=== PATIENT | female | born 1975 | race Caucasian/White ===

== ENCOUNTER 2022-06-20 05:14 | Emergency (ER) | payer MEDICAID, SELFPAY ==
--- NOTE | 2022-06-20 05:37 | ED_ITS ---
Documented by User: Khoa Brady DO 06/20/22 05:58 HPI - Dizziness General: Chief Complaint: Abdominal Pain Stated Complaint: right ear pain, abd pain, N/V/D Time Seen by Provider: 06/20/22 05:26 History of Present Illness: HPI Narrative: 47-year-old female with a history of ear infections and vertigo she says. She presents on awakening around an hour prior to arrival with significant vertiginous symptoms, and right ear pain. Her vertigo is bad enough, that she has thrown up 3 times. She has had an episode of diarrhea as well. No blood in the stool. No significant abdominal pain prior to the throwing up. MD elicited complaint: dizziness Pertinent past history: inner ear problems Onset (ago): minute(s) Timing: sudden onset Severity: severe Description: sense of movement and room spinning History of similar symptoms: Yes Exacerbating factors: movement/ambulation Associated symptoms: Reports diaphoresis, nausea and vomiting; Denies chest pain, chills, ear discharge or headache(s) Associated neuro symptoms: Deny confusion, difficulty speaking, dysphagia, diplopia or extremity weakness Review of Systems Const: Reports: diaphoresis; Denies: chills Eyes: Denies: change in vision ENMT: Reports: ear or mastoid pain; Denies: throat pain or ear discharge Card: Denies: chest pain or irregular heart rhythm GI: Reports: nausea, vomiting and diarrhea; Denies: abdominal pain or dysphagia : Denies: flank pain Musc: Denies: neck pain Skin/Breast: Denies: rash Neuro: Denies: headache(s) or confusion PFS ED PFSH: Social History Smoking and tobacco status: never smoked Second hand smoke exposure: No Alcohol intake: never Physical Exam Const: ORIENTATION/CONSCIOUSNESS: Yes awake, Yes oriented to person, Yes oriented to place and Yes oriented to time HENMT: COMMON NORMALS: normocephalic, atraumatic and Normal external nose present HEAD & SCALP: normocephalic and atraumatic FACE & SINUS: normal facial exam and face symmetric NOSE: Normal external nose present TYMPANIC MEMBRANE: TM abnormal TM laterality: right Details: effusion and erythematous Eye: COMMON NORMALS: Equal, round and reactive pupils present and EOMs intact bilaterally PUPIL: Yes Equal, round and reactive pupils present and Yes Pupil accommodation reflex normal Chest: CHEST: Yes Symmetrical chest wall rise Resp: COMMON NORMALS: normal respiratory effort, No use of accessory muscles and clear to auscultation bilaterally AUSCULTATION: clear to auscultation bilaterally Cardio: COMMON NORMALS: regular rate and regular rhythm RATE: regular rate RHYTHM: regular rhythm GI: COMMON NORMALS: Normal to inspection, nondistended, normoactive bowel sounds present, Soft to palpation and non-tender PALPATION: Yes Soft to palpation Extremity: COMMON NORMALS: no pedal edema Neuro: ROSALINA COMA SCALE: document GCS findings [place] coma scale eye opening: Spontaneous [place] coma scale verbal response: Orientated [place] coma scale motor response: Obey commands [place] coma scale total score: 15 SENSORIUM/ORIENTATION: Yes oriented to person, Yes oriented to place and Yes or iented to time COORDINATION/BALANCE: [id number] test normal SPEECH: speech normal SENSORY EXAM: Yes extremities (intact) MOTOR EXAM: Normal motor muscle tone present throughout COORDINATION: [id number]-jp-vpyj test normal Psych: COMMON NORMALS: mental status grossly normal and cooperative Course Vital Signs: Vital signs: Vital Signs Temperature 97.1 F L 06/20/22 05:50 Pulse Rate 80 06/20/22 05:50 Respiratory Rate 20 H 06/20/22 05:50 Blood Pressure 139/97 06/20/22 05:50 Pulse Oximetry 97 06/20/22 05:50 [facility] - Dizziness Medical Decision Making 47-year-old female with vertigo, vomiting, and one episode of diarrhea. Her belly is not tender. Vitals are good. Labs are pending. She will be checked out to the oncoming physician at shift change. Lab Data : 06/20/22 05:45 06/20/22 05:45 Laboratory Results WBC 5.2 10^3/uL (4.0-10.0) 06/20/22 05:45 RBC 4.45 10^6/uL (4.1-5.3) 06/20/22 05:45 Hgb 14.3 g/dL (11.5-15.3) 06/20/22 05:45 Hct 41.6 % (37.0-47.0) 06/20/22 05:45 MCV 93.5 fl (81-99) 06/20/22 05:45 MCH 32.1 pg (28.0-34.0) 06/20/22 05:45 MCHC 34.4 g/dL (30.0-36.0) 06/20/22 05:45 RDW 13.2 % (12.1-15.1) 06/20/22 05:45 Plt Count 135 10^3/cmm (130-400) 06/20/22 05:45 MPV 9.1 fL (7.4-10.4) 06/20/22 05:45 Neut % (Auto) 65.7 % 06/20/22 05:45 Lymph % (Auto) 27.0 % 06/20/22 05:45 [place] % (Auto) 5.9 % 06/20/22 05:45 Eos % (Auto) 0.8 % 06/20/22 05:45 Baso % (Auto) 0.4 % 06/20/22 05:45 Neut # (Auto) 3.43 10^3/uL (1.8-7.7) 06/20/22 05:45 Lymph # (Auto) 1.4 10^3/uL (0.8-4.8) 06/20/22 05:45 [place] # (Auto) 0.3 10^3/uL (0.2-0.9) 06/20/22 05:45 Eos # (Auto) 0.0 10^3/uL (0.0-0.8) 06/20/22 05:45 Baso # (Auto) 0.0 10^3/uL (0.0-0.1) 06/20/22 05:45 Nucleated RBC % (auto) 0 % 06/20/22 05:45 Nucleated RBCs # 0.0 /100WBC 06/20/22 05:45 Sodium 140 mmol/L (136-145) 06/20/22 05:45 Potassium 4.1 mmol/L (3.5-5.1) 06/20/22 05:45 Chloride 104 mmol/L (98-107) 06/20/22 05:45 Carbon Dioxide 26 mmol/L (22-29) 06/20/22 05:45 Anion Gap 14.1 (5-19) 06/20/22 05:45 BUN 13 mg/dL (6-20) 06/20/22 05:45 Creatinine 0.6 mg/dL (0.5-0.9) 06/20/22 05:45 GFR Calculation 106.7 mL/min (90-130) 06/20/22 05:45 Glucose 164 mg/dL (65-115) H 06/20/22 05:45 Calculated Osmolality 294 mOsm/kg (285-295) 06/20/22 05:45 Calcium 9.3 mg/dL (8.5-10.5) 06/20/22 05:45 Total Bilirubin 1.3 mg/dL (0.15-1.2) H 06/20/22 05:45 AST 7 U/L (0-32) 06/20/22 05:45 ALT 20 U/L (0-33) 06/20/22 05:45 Alkaline Phosphatase 101 U/L (35-105) 06/20/22 05:45 C-Reactive Protein 3.0 mg/L (0.0-4.9) 06/20/22 05:45 Total Protein 6.8 g/dL (6.6-8.7) 06/20/22 05:45 Albumin 4.0 g/dL (3.5-5.2) 06/20/22 05:45 Globulin 2.8 g/dL (1.3-4.6) 06/20/22 05:45 Lipase 30 U/L (13-60) 06/20/22 05:45 Urine Color Yellow (Yellow) 06/20/22 07:18 Urine Appearance Clear (CLEAR) 06/20/22 07:18 Urine pH 6 (5-7) 06/20/22 07:18 Ur Specific [place] 1.020 (1.005-1.030) 06/20/22 07:18 Urine Protein Neg (Negative) 06/20/22 07:18 Urine Glucose (UA) Norm (Normal) 06/20/22 07:18 Urine Ketones Negative (Negative) 06/20/22 07:18 Urine Blood Neg (Negative) 06/20/22 07:18 Urine Nitrate Negative (Negative) 06/20/22 07:18 Urine Bilirubin Neg (Negative) 06/20/22 07:18 Urine Urobilinogen Norm mg/dL (Negative) 06/20/22 07:18 Ur Leukocyte Esterase Negative (Negative) 06/20/22 07:18 Discharge Plan Discharge Patient Disposition: Home Clinical Impression: Acute labyrinthitis, Right ear pain, Recurrent acute otitis media Condition: Stable Prescriptions: New Medrol (Thony) 4 mg tablets,dose pack See Rx Instructions .ROUTE .COMPLEX Qty: 21 0RF Rx Instructions: orally per package directions meclizine 25 mg tablet 25 mg PO QID PRN (Reason: dizziness) Qty: 20 0RF No Action levothyroxine 50 mcg tablet 50 mcg PO DAILY amoxicillin-pot clavulanate 875-125 mg tablet 1 tab PO Q12H Qty: 14 0RF uoihcxzq-bvhtfgvhy-GT 3.5-10,000-1 mg/mL-unit/mL-% drops,suspension 4 drp otic (ear) Q8H 10 Days Qty: 10 0RF Discharge Orders: Discharge ED (Routine); Ordered 06/20/22 Ordered By: Javed Howard Discharge Diet: Usual diet Discharge Activity: Increase activity as tolerated Activity Restrictions/Additional Instructions: Start prednisone taper today. Use meclizine as needed for relief of dizziness symptoms. If symptoms persist follow-up with your primary care doctor for evaluation for referral to ENT. Sign Out Sign Out Data: Patient Sign Out occurred on 06/20/22 at 06:38. Patient's care was discussed, and care was transferred from to Javed Howard DO. Coding Level of Care Code ED Millinery Designer for Chg Fwd Exam Comprehensive Documented by User: Javed Howard DO 06/20/22 07:46 HPI - Dizziness General: Chief Complaint: Abdominal Pain Stated Complaint: right ear pain, abd pain, N/V/D Time Seen by Provider: 06/20/22 05:26 PFSH ED PFSH: Social History Smoking and tobacco status: never smoked Second hand smoke exposure: No Alcohol intake: never Physical Exam Neuro: ROSALINA COMA SCALE: document GCS findings [place] coma scale total score: 15 Course Vital Signs: Vital signs: Vital Signs Temperature 97.1 F L 06/20/22 05:50 Pulse Rate 80 06/20/22 05:50 Respiratory Rate 20 H 06/20/22 05:50 Blood Pressure 139/97 06/20/22 05:50 Pulse Oximetry 97 06/20/22 05:50 MDM - Dizziness Medical Decision Making 47-year-old female with vertigo, vomiting, and one episode of diarrhea. Her belly is not tender. Vitals are good. Labs are pending. She will be checked out to the oncoming physician at shift change. Care assumed at change of shift on repeat exam she has some residue from drops in the right ear canal and there is some wax present as well but the eardrum itself does not appear to be acutely inflamed the left TM is clear she has reproducible dizziness with change in body position she is particularly worse if she is moves her head to the right. We will give p.o. Ativan and meclizine now here in the emergency room. Discharge her from the emergency room give her meclizine to use as needed and have her follow-up with ENT while case management make arrangements for referral. Medical Records I reviewed the patient's medical records. Lab Data I reviewed the patient's lab results. : 06/20/22 05:45 06/20/22 05:45 Laboratory Results WBC 5.2 10^3/uL (4.0-10.0) 06/20/22 05:45 RBC 4.45 10^6/uL (4.1-5.3) 06/20/22 05:45 Hgb 14.3 g/dL (11.5-15.3) 06/20/22 05:45 Hct 41.6 % (37.0-47.0) 06/20/22 05:45 MCV 93.5 fl (81-99) 06/20/22 05:45 MCH 32.1 pg (28.0-34.0) 06/20/22 05:45 MCHC 34.4 g/dL (30.0-36.0) 06/20/22 05:45 RDW 13.2 % (12.1-15.1) 06/20/22 05:45 Plt Count 135 10^3/cmm (130-400) 06/20/22 05:45 MPV 9.1 fL (7.4-10.4) 06/20/22 05:45 Neut % (Auto) 65.7 % 06/20/22 05:45 Lymph % (Auto) 27.0 % 06/20/22 05:45 [place] % (Auto) 5.9 % 06/20/22 05:45 Eos % (Auto) 0.8 % 06/20/22 05:45 Baso % (Auto) 0.4 % 06/20/22 05:45 Neut # (Auto) 3.43 10^3/uL (1.8-7.7) 06/20/22 05:45 Lymph # (Auto) 1.4 10^3/uL (0.8-4.8) 06/20/22 05:45 [place] # (Auto) 0.3 10^3/uL (0.2-0.9) 06/20/22 05:45 Eos # (Auto) 0.0 10^3/uL (0.0-0.8) 06/20/22 05:45 Baso # (Auto) 0.0 10^3/uL (0.0-0.1) 06/20/22 05:45 Nucleated RBC % (auto) 0 % 06/20/22 05:45 Nucleated RBCs # 0.0 /100WBC 06/20/22 05:45 Sodium 140 mmol/L (136-145) 06/20/22 05:45 Potassium 4.1 mmol/L (3.5-5.1) 06/20/22 05:45 Chloride 104 mmol/L (98-107) 06/20/22 05:45 Carbon Dioxide 26 mmol/L (22-29) 06/20/22 05:45 Anion Gap 14.1 (5-19) 06/20/22 05:45 BUN 13 mg/dL (6-20) 06/20/22 05:45 Creatinine 0.6 mg/dL (0.5-0.9) 06/20/22 05:45 GFR Calculation 106.7 mL/min (90-130) 06/20/22 05:45 Glucose 164 mg/dL (65-115) H 06/20/22 05:45 Calculated Osmolality 294 mOsm/kg (285-295) 06/20/22 05:45 Calcium 9.3 mg/dL (8.5-10.5) 06/20/22 05:45 Total Bilirubin 1.3 mg/dL (0.15-1.2) H 06/20/22 05:45 AST 7 U/L (0-32) 06/20/22 05:45 ALT 20 U/L (0-33) 06/20/22 05:45 Alkaline Phosphatase 101 U/L (35-105) 06/20/22 05:45 C-Reactive Protein 3.0 mg/L (0.0-4.9) 06/20/22 05:45 Total Protein 6.8 g/dL (6.6-8.7) 06/20/22 05:45 Albumin 4.0 g/dL (3.5-5.2) 06/20/22 05:45 Globulin 2.8 g/dL (1.3-4.6) 06/20/22 05:45 Lipase 30 U/L (13-60) 06/20/22 05:45 Urine Color Yellow (Yellow) 06/20/22 07:18 Urine Appearance Clear (CLEAR) 06/20/22 07:18 Urine pH 6 (5-7) 06/20/22 07:18 Ur Specific [place] 1.020 (1.005-1.030) 06/20/22 07:18 Urine Protein Neg (Negative) 06/20/22 07:18 Urine Glucose (UA) Norm (Normal) 06/20/22 07:18 Urine Ketones Negative (Negative) 06/20/22 07:18 Urine Blood Neg (Negative) 06/20/22 07:18 Urine Nitrate Negative (Negative) 06/20/22 07:18 Urine Bilirubin Neg (Negative) 06/20/22 07:18 Urine Urobilinogen Norm mg/dL (Negative) 06/20/22 07:18 Ur Leukocyte Esterase Negative (Negative) 06/20/22 07:18 Discharge Plan Discharge Patient Disposition: Home Clinical Impression: Acute labyrinthitis, Right ear pain, Recurrent acute otitis media Condition: Stable Prescriptions: New Medrol (Thony) 4 mg tablets,dose pack See Rx Instructions .ROUTE .COMPLEX Qty: 21 0RF Rx Instructions: orally per package directions meclizine 25 mg tablet 25 mg PO QID PRN (Reason: dizziness) Qty: 20 0RF No Action levothyroxine 50 mcg tablet 50 mcg PO DAILY amoxicillin-pot clavulanate 875-125 mg tablet 1 tab PO Q12H Qty: 14 0RF [id number]-luaxpivzp-DD 3.5-10,000-1 mg/mL-unit/mL-% drops,suspension 4 drp otic (ear) Q8H 10 Days Qty: 10 0RF Discharge Orders: Discharge ED (Routine); Ordered 06/20/22 Ordered By: Javed Howard Discharge Diet: Usual diet Discharge Activity: Increase activity as tolerated Activity Restrictions/Additional Instructions: Start prednisone taper today. Use meclizine as needed for relief of dizziness symptoms. If symptoms persist follow-up with your primary care doctor for evaluation for referral to ENT. Sign Out Sign Out Data: Patient Sign Out occurred on 06/20/22 at 06:38. Patient's care was discussed, and care was transferred from to Javed Howard DO. Coding Level of Care Code ED Millinery Designer for Alena Fwd Exam Comprehensive
--- NOTE | 2022-06-20 05:43 | ECG_ITS ---
[facility] Test Date: 2022-06-20 Pat Name: Tenisha Mclain Department: Room: Gender: Female Stamping Press Operator: : 1975 Requested By: Khoa Ribeiro Order Number: [id number] Charis MD: Deepa Arias M.D. Measurements Intervals [place] Rate: 61 P: 57 [place]: 170 QRS: -19 QRSD: 119 T: 3 QT: 363 QTc: 367 Interpretive Statements SINUS RHYTHM LOW QRS VOLTAGE IN PRECORDIAL LEADS [QRS DEFLECTION < 1.0 mV IN CHEST LEADS] INCOMPLETE RIGHT BUNDLE BRANCH BLOCK [90+ ms QRS DURATION, TERMINAL R IN V1/V2, 40+ ms S IN I/aVL/V4/V5/V6] NONSPECIFIC T-WAVE ABNORMALITY No previous ECG available for comparison Electronically Signed On 06-20-2022 7:56:33 CDT by Deepa Arias M.D. [id number]
[2022-06-20 05:50] VITALS: BP 139/97; PULSE 80; RESP 20; TEMP 36.2; O2SAT 97; BMI 34.4
[2022-06-20 05:58] LABS: Basophils % 0.4 %; Eosinophils % 0.8 %; Hematocrit 41.6 % (37.0-47.0); Hemoglobin 14.3 g/dL (11.5-15.3); Lymphocytes # 1.4 10^3/uL (0.8-4.8); Mean Corpuscular HGB Conc 34.4 g/dL (30.0-36.0); Mean Corpuscular Hemoglobin 32.1 pg (28.0-34.0); Mean Corpuscular Volume 93.5 fl (81-99); Mean Platelet Volume 9.1 fL (7.4-10.4); Monocytes # 0.3 10^3/uL (0.2-0.9); Monocytes % 5.9 %; Neutrophils # 3.43 10^3/uL (1.8-7.7); Neutrophils % 65.7 %; Nucleated Red Blood Cells % 0 %; Platelet Count 135 10^3/cmm (130-400); Red Blood Count 4.45 10^6/uL (4.1-5.3); Red Cell Distribution Width 13.2 % (12.1-15.1); White Blood Count 5.2 10^3/uL (4.0-10.0)
[2022-06-20] MEDS: midazolam 1 mg/mL INJ 2 mL IVP (05:58)
[2022-06-20] MEDS: ondansetron 2 mg/ML SDV 2 mL 4 MG IVP (05:58)
[2022-06-20] MEDS: sodium chloride 0.9% 1,000 ML 999 ML IV (05:58)
[2022-06-20 06:17] LABS: Alanine Aminotransferase 20 U/L (0-33); Alkaline Phosphatase 101 U/L (35-105); Anion Gap 14.1 (5-19); Aspartate Amino Transferase 7 U/L (0-32); Blood Urea Nitrogen 13 mg/dL (6-20); Calcium 9.3 mg/dL (8.5-10.5); Carbon Dioxide 26 mmol/L (22-29); Chloride 104 mmol/L (98-107); Globulin 2.8 g/dL (1.3-4.6); Glomerular Filtration Rate 106.7 mL/min (90-130); Glucose 164 mg/dL (65-115); Lipase 30 U/L (13-60); Osmolality Calculated 294 mOsm/kg (285-295); Potassium 4.1 mmol/L (3.5-5.1); Sodium 140 mmol/L (136-145); Total Bilirubin 1.3 mg/dL (0.15-1.2); Total Protein 6.8 g/dL (6.6-8.7)
[2022-06-20 07:27] LABS: Add Urine Microscopic? NO; Charge for UA Resulting for Rev
[2022-06-20 07:31] LABS: Urine Appearance Clear (CLEAR); Urine Color Yellow (Yellow); pH Urine 6 (5-7)
[2022-06-20 07:32] LABS: Bilirubin Urine Neg (Negative); Blood Urine Neg (Negative); Glucose Urine UA Norm (Normal); Ketones Urine Negative (Negative); Leukocyte Esterase Urine Negative (Negative); Nitrate Urine Negative (Negative); Protein Urine Neg (Negative); Urobilinogen Urine Norm (Negative)
[2022-06-20] MEDS: meclizine 25 mg tablet PO (07:48)
[2022-06-20] MEDS: LORazepam 2 mg Tablet PO (07:48)
--- NOTE | 2022-06-21 10:59 | DCPLANNER ---
Addendum entered by Deloris Estrada 06/29/22 14:58: Patient did attend appointment scheduled for 06.29.22 with ENT. Addendum entered by Deloris Estrada 06/28/22 15:29: Patient has a follow up appointment scheduled for Monday, June 29, 2022 at 11:[address] Orta at ENT. Clinic will call patient with appointment information. Original Note: shop manager had message to schedule a follow up appointment for patient with ENT. shop manager sent patients information to the front office staff at ENT. Patients information will be printed and reviewed. Clinic will call patient with appointment information.
== END 2022-06-20 07:57 | disposition home or self-care (01) ==
PROVIDERS: Emergency Medicine; Emergency Provider Family Medicine
DX: H83.09 Labyrinthitis, unspecified ear (principal); H92.01 Otalgia, right ear; H66.91 Otitis media, unspecified, right ear
CPT/HCPCS: 80053; 81003; 83690; 85025; 86140; 93005; 96361; 96374; 96375; 99284; J2250; J2405; J7030; J8597

== ENCOUNTER → 2022-06-29 10:37 | Outpatient (BNVA) | payer MEDICAID, SELFPAY | PROVIDERS: Visit Provider Otolaryngology | DX: R42 Dizziness and giddiness (principal); M26.621 Arthralgia of right temporomandibular joint; H91.93 Unspecified hearing loss, bilateral; H92.01 Otalgia, right ear; H93.13 Tinnitus, bilateral; Z86.69 Personal history of other diseases of the nervous system and sense organs; E66.01 Morbid (severe) obesity due to excess calories; Z68.43 Body mass index [BMI] 50.0-59.9, adult; K08.9 Disorder of teeth and supporting structures, unspecified; G44.209 Tension-type headache, unspecified, not intractable | CPT/HCPCS: 99204 ==

== ENCOUNTER 2023-01-14 10:10 | Emergency (ER) | payer MEDICAID, SELFPAY ==
--- NOTE | 2023-01-14 10:17 | ED_ITS ---
HPI - Abdominal Pain General: Chief Complaint: Abdominal Pain Stated Complaint: right side abd pain Time Seen by Provider: 01/14/23 10:17 History of Present Illness: Ms. Mclain is a 47-year-old lady with history of chronic right ovary pain presenting to the emergency department for worse pain. She reports being at her baseline health and had a recent trip which involved travel by driving to [place]. She got back yesterday and felt normal her baseline 3 out of 10 pain however this morning without known specific provoking event pain has been moderate to severe in intensity. Denies worsening with any particular activity or associated symptoms. Since worsening pain has been con stant. Otherwise feels similar in location and character to baseline pain. No other specific changes in health, exacerbating, or alleviating factors identified. Pertinent past history: other Onset (ago): hour(s) Pain Consistency: constant Location: RLQ Severity: moderate Quality: aching and sharp Radiation: none Migration to: no migration Exacerbating factors: nothing Relieving factors: nothing Associated Symptoms: Reports no associated symptoms Review of Systems General: Reports: 10 or more systems reviewed and unremarkable except in HPI and below PFSH ED PFSH: Medical History Allergy to alpha-gal Hyperthyroidism Surgical History Hx of section Hx of cholecystectomy Social History Smoking and tobacco status: never smoked Second hand smoke exposure: No Alcohol intake: never Physical Exam Const: COMMON NORMALS: alert GENERAL APPEARANCE: cooperative and well developed HENMT: COMMON NORMALS: normocephalic and atraumatic HEAD & SCALP: normocephalic and atraumatic Eye: COMMON NORMALS: conjunctivae normal CONJUNCTIVA: Yes conjunctivae normal SCLERA: sclerae normal Neck/C-Spine: COMMON NORMALS: supple GENERAL: Yes trachea midline Resp: COMMON NORMALS: normal respiratory effort EFFORT & INSPECTION: Yes able to speak in complete sentences Cardio: COMMON NORMALS: regular rate and regular rhythm RATE: regular rate RHYTHM: regular rhythm GI: COMMON NORMALS: Soft to palpation PALPATION: Yes Soft to palpation, Yes Tenderness to palpation present (GI) Details: RLQ, No Guarding due to palpation present (GI) and No Rigid due to palpation Extremity: GENERAL: Yes normal exam except as noted and No edema Neuro: COMMON NORMALS: moves all extremities SENSORIUM/ORIENTATION: Yes alert and No Orientation impaired Psych: COMMON NORMALS: mental status grossly normal and Normal thought process present THOUGHT PROCESS: Normal thought process present Course Vital Signs: Vital signs: Vital Signs Pulse Rate 67 01/14/23 10:21 Respiratory Rate 18 01/14/23 11:14 Blood Pressure 174/76 01/14/23 11:11 Pulse Oximetry 97 01/14/23 11:11 Oxygen Delivery Me thod 01/14/23 11:11 MDM - Abdominal Pain Medical Decision Making 47-year-old lady presenting with right-sided abdominal pain with a history of chronic pain. Exam as above. Labs with no significant hematologic or metabolic abnormalities. No UTI. hCG negative. Pelvic ultrasound without clear abnormality though right ovary is not optimally visualized and endometrium is mildly thickened. CT demonstrates no specific abnormality, appendix is normal. Given patient description of symptoms and questionable ultrasound results FLIGHT OPERATIONS COORDINATOR service consulted and came to see the patient. Patient satisfactory for outpatient management and I will message case management for FLIGHT OPERATIONS COORDINATOR follow-up. The results of ED evaluation were discussed with the patient including prescriptions and/or symptomatic cares (if applicable) including appropriate and responsible use, followup plan, and return precautions. The patient verbalized understanding and felt safe for discharge. Medical Records I reviewed the patient's medical records. Lab Data I reviewed the patient's lab results. 01/14/23 11:04 01/14/23 11:04 Labs/Radiology: Radiology Impressions Pelvis Ultrasound 01/14/23 10:36 IMPRESSION: Endometrium is mildly thickened measuring 15 mm. Abdomen/Pelvis CT 01/14/23 13:45 IMPRESSION: No acute findings.A normal appendix is identified. Laboratory Results WBC 6.3 10^3/uL (4.0-10.0) 01/14/23 11:04 RBC 4.55 10^6/uL (4.1-5.3) 01/14/23 11:04 Hgb 14.2 g/dL (11.5-15.3) 01/14/23 11:04 Hct 43.8 % (37.0-47.0) 01/14/23 11:04 MCV 96.3 fl (81-99) 01/14/23 11:04 MCH 31.2 pg (28.0-34.0) 01/14/23 11:04 MCHC 32.4 g/dL (30.0-36.0) 01/14/23 11:04 RDW 12.7 % (12.1-15.1) 01/14/23 11:04 Plt Count 161 10^3/cmm (130-400) 01/14/23 11:04 MPV 9.1 fL (7.4-10.4) 01/14/23 11:04 Neut % (Auto) 57.1 % 01/14/23 11:04 Lymph % (Auto) 34.7 % 01/14/23 11:04 [place] % (Auto) 6.7 % 01/14/23 11:04 Eos % (Auto) 0.8 % 01/14/23 11:04 Baso % (Auto) 0.5 % 01/14/23 11:04 Neut # (Auto) 3.60 10^3/uL (1.8-7.7) 01/14/23 11:04 Lymph # (Auto) 2.2 10^3/uL (0.8-4.8) 01/14/23 11:04 [place] # (Auto) 0.4 10^3/uL (0.2-0.9) 01/14/23 11:04 Eos # (Auto) 0.1 10^3/uL (0.0-0.8) 01/14/23 11:04 Baso # (Auto) 0.0 10^3/uL (0.0-0.1) 01/14/23 11:04 Nucleated RBC % (auto) 0 % 01/14/23 11:04 Nucleated RBCs # 0.0 /100WBC 01/14/23 11:04 Sodium 139 mmol/L (136-145) 01/14/23 11:04 Potassium 4.2 mmol/L (3.5-5.1) 01/14/23 11:04 Chloride 104 mmol/L (98-107) 01/14/23 11:04 Carbon Dioxide 22 mmol/L (22-29) 01/14/23 11:04 Anion Gap 17.2 (5-19) 01/14/23 11:04 BUN 7 mg/dL (6-20) 01/14/23 11:04 Creatinine 0.7 mg/dL (0.5-0.9) 01/14/23 11:04 GFR Calculation 89.3 mL/min (90-130) L 01/14/23 11:04 Glucose 130 mg/dL (65-115) H 01/14/23 11:04 Calculated Osmolality 288 mOsm/kg (285-295) 01/14/23 11:04 Calcium 9.3 mg/dL (8.5-10.5) 01/14/23 11:04 Total Bilirubin 1.2 mg/dL (0.15-1.2) 01/14/23 11:04 AST 11 U/L (0-32) 01/14/23 11:04 ALT 22 U/L (0-33) 01/14/23 11:04 Alkaline Phosphatase 102 U/L (35-105) 01/14/23 11:04 Total Protein 6.9 g/dL (6.6-8.7) 01/14/23 11:04 Albumin 3.8 g/dL (3.5-5.2) 01/14/23 11:04 Globulin 3.1 g/dL (1.3-4.6) 01/14/23 11:04 HCG, Qual Negative (Negative) 01/14/23 11:04 Urine Color Yellow (Yellow) 01/14/23 11:27 Urine Appearance Clear (CLEAR) 01/14/23 11:27 Urine pH 6 (5-7) 01/14/23 11:27 Ur Specific [place] 1.010 (1.005-1.030) 01/14/23 11:27 Urine Protein Neg (Negative) 01/14/23 11:27 Urine Glucose (UA) Norm (Normal) 01/14/23 11:27 Urine Ketones Negative (Negative) 01/14/23 11:27 Urine Blood Neg (Negative) 01/14/23 11:27 Urine Nitrate Negative (Negative) 01/14/23 11:27 Urine Bilirubin Neg (Negative) 01/14/23 11:27 Urine Urobilinogen Norm mg/dL (Negative) 01/14/23 11:27 Ur Leukocyte Esterase Negative (Negative) 01/14/23 11:27 Discharge Plan Discharge Patient Disposition: Home Clinical Impression: Abdominal pain Condition: Stable Prescriptions: New oxycodone 5 mg tablet 5 mg PO Q4H PRN (Reason: pain) Qty: 10 0RF No Action levothyroxine 50 mcg tablet 50 mcg PO DAILY amoxicillin-pot clavulanate 875-125 mg tablet 1 tab PO Q12H Qty: 14 0RF vsvmzqcg-wibjjgncm-AK 3.5-10,000-1 mg/mL-unit/mL-% drops,suspension 4 drp otic (ear) Q8H 10 Days Qty: 10 0RF Medrol (Thony) 4 mg tablets,dose pack See Rx Instructions .ROUTE .COMPLEX Qty: 21 0RF Rx Instructions: orally per package directions meclizine 25 mg tablet 25 mg PO QID PRN (Reason: dizziness) Qty: 20 0RF Discharge Orders: Discharge ED (Routine); Ordered 01/14/23 Ordered By: Randy Watts Discharge Diet: Advance as tolerated and Clear Liquid Discharge Activity: Increase activity as tolerated Patient Instructions: Abdominal Pain (ED), Opioid Safety Activity Restrictions/Additional Instructions: Thank you for visiting the emergency department. You were seen and evaluated for abdominal pain. The exact cause of your symptoms is unclear though does not appear to need hospitalization at this time. You may use jikj-xuz-iiekkzt medications such as acetaminophen and ibuprofen for pain however please do not exceed the daily recommended dosage as listed on the packaging and please keep in mind that many namebrand medications contain the same active ingredients. Please avoid these medications if previously instructed to do so by another physician due to other underlying medical condition. I will also prescribe oxycodone, use this cautiously and only for uncontrolled pain. Please follow all recommendations given by Dr. Arcos. I will message case management for FLIGHT OPERATIONS COORDINATOR follow-up, also please follow-up with a primary care provider. Return to the emergency department for uncontrolled symptoms or anything else that you are concerned about and feel needs emergency department evaluation. Coding Level of Care Code ED Pole Shaver Helper for Alena Torres
[2023-01-14 10:21] VITALS: BP 216/120; PULSE 67; RESP 17; O2SAT 97; BMI 52.8
--- NOTE | 2023-01-14 10:36 | USR_ITS ---
PROCEDURE INFORMATION: Exam: US Nonobstetric Pelvis; Complete Exam date and time: 01/14/2023 12:09 PM Age: 47 years old Clinical indication: Hip pain; Right hip; Additional info: Rlq pain, eval ovarian torsion vs other TECHNIQUE: Imaging protocol: Transabdominal pelvic nonobstetric ultrasound. Complete exam. Real time ultrasound with image documentation. COMPARISON: No relevant prior studies available. FINDINGS: Uterus: Uterus measures 11.3 x 5.3 x 6.2 centimetres. Endometrium is thickened measuring 15 mm. Cervix: Incidental nabothian cysts. Right ovary/adnexa: Right ovary measures 3.2 x 2.5 x 2.9 cm with a volume of 12.2 cc. Doppler evaluation of ovarian flow suboptimal secondary to body habitus of the patient. Ovarian flow cannot be adequately evaluated for. No masses. Left ovary/adnexa: Ovary is normal. No mass. Normal blood flow. Intraperitoneal space: No intraperitoneal fluid. Urinary bladder: Normal. US/US pelvic complete* [id number] IMPRESSION: Endometrium is mildly thickened measuring 15 mm.
[2023-01-14 11:11] VITALS: BP 174/76; O2SAT 97
[2023-01-14 11:14] VITALS: RESP 18
[2023-01-14] MEDS: oxyCODONE 5 mg IR Tab/Cap PO (11:14)
[2023-01-14 11:21] LABS: Basophils % 0.5 %; Eosinophils # 0.1 10^3/uL (0.0-0.8); Eosinophils % 0.8 %; Hematocrit 43.8 % (37.0-47.0); Hemoglobin 14.2 g/dL (11.5-15.3); Lymphocytes # 2.2 10^3/uL (0.8-4.8); Lymphocytes % 34.7 %; Mean Corpuscular HGB Conc 32.4 g/dL (30.0-36.0); Mean Corpuscular Hemoglobin 31.2 pg (28.0-34.0); Mean Corpuscular Volume 96.3 fl (81-99); Mean Platelet Volume 9.1 fL (7.4-10.4); Monocytes # 0.4 10^3/uL (0.2-0.9); Monocytes % 6.7 %; Neutrophils % 57.1 %; Nucleated Red Blood Cells % 0 %; Platelet Count 161 10^3/cmm (130-400); Red Blood Count 4.55 10^6/uL (4.1-5.3); Red Cell Distribution Width 12.7 % (12.1-15.1); White Blood Count 6.3 10^3/uL (4.0-10.0)
[2023-01-14 11:30] LABS: HCG, Serum Qual Negative (Negative)
[2023-01-14 11:37] LABS: Alanine Aminotransferase 22 U/L (0-33); Albumin Level 3.8 g/dL (3.5-5.2); Alkaline Phosphatase 102 U/L (35-105); Anion Gap 17.2 (5-19); Aspartate Amino Transferase 11 U/L (0-32); Blood Urea Nitrogen 7 mg/dL (6-20); Calcium 9.3 mg/dL (8.5-10.5); Carbon Dioxide 22 mmol/L (22-29); Chloride 104 mmol/L (98-107); Globulin 3.1 g/dL (1.3-4.6); Glomerular Filtration Rate 89.3 mL/min (90-130); Glucose 130 mg/dL (65-115); Osmolality Calculated 288 mOsm/kg (285-295); Potassium 4.2 mmol/L (3.5-5.1); Sodium 139 mmol/L (136-145); Total Bilirubin 1.2 mg/dL (0.15-1.2); Total Protein 6.9 g/dL (6.6-8.7)
[2023-01-14 11:43] LABS: Add Urine Microscopic? NO; Charge for UA Resulting for Rev
[2023-01-14 11:57] LABS: Urine Appearance Clear (CLEAR); Urine Color Yellow (Yellow)
[2023-01-14 11:58] LABS: Bilirubin Urine Neg (Negative); Blood Urine Neg (Negative); Glucose Urine UA Norm (Normal); Ketones Urine Negative (Negative); Leukocyte Esterase Urine Negative (Negative); Nitrate Urine Negative (Negative); Protein Urine Neg (Negative); Urobilinogen Urine Norm (Negative); pH Urine 6 (5-7)
--- NOTE | 2023-01-14 13:45 | CTR_ITS ---
PROCEDURE INFORMATION: Exam: CT Abdomen And Pelvis With Contrast Exam date and time: 01/14/2023 2:07 PM Age: 47 years old Clinical indication: Abdominal pain; Localized; Right lower quadrant TECHNIQUE: Imaging protocol: Computed tomography of the abdomen and pelvis with contrast. Radiation optimization: All CT scans at this facility use at least one of these dose optimization techniques: automated exposure control; mA and/or kV adjustment per patient size (includes targeted exams where dose is matched to clinical indication); or iterative reconstruction. Contrast material: OMNI 350; Contrast volume: 100 ml; Contrast route: INTRAVENOUS (IV); REPORTING DATA: Count of CT and Cardiac NM exams in prior 12 months: This patient has received 0 known CTs and 0 known cardiac nuclear medicine studies in the 12 months prior to the current study. COMPARISON: US pelvic complete* [id number] 01/14/2023 12:09 PM RADIATION DOSE METRICS: Total DLP (mGy-cm): 1285.93 FINDINGS: Liver: Normal. No mass. Gallbladder and bile ducts: The gallbladder has been removed. Pancreas: Normal. No ductal dilation. Spleen: Normal. No splenomegaly. Adrenal glands: Normal. No mass. Kidneys and ureters: There is a 9 mm well-circumscribed fat containing lesion in the upper pole the left kidney consistent with a benign myelolipoma. Stomach and bowel: Unremarkable. No obstruction. No mucosal thickening. Appendix: A normal appendix is identified. Intraperitoneal space: Unremarkable. No free air. No significant fluid collection. Vasculature: Unremarkable. No abdominal aortic aneurysm. Lymph nodes: Unremarkable. No enlarged lymph nodes. Urinary bladder: Unremarkable as visualized. Reproductive: There are tubal ligation changes. Bones/joints: Unremarkable. No acute fracture. Soft tissues: Small fat containing umbilical hernia. CT/CT abdomen pelvis w con* [id number] IMPRESSION: No acute findings.A normal appendix is identified.
[2023-01-14] MEDS: morphine 4 mg/mL SDV 1 mL IM (13:50)
[2023-01-14] MEDS: iohexol 350 mg/mL 500 mL Btl (per mL) IV (13:55)
--- NOTE | 2023-01-14 15:22 | PM.OBGYCN ---
Providers/Reason for Consult Consulting Physican/Specialty*: OBGYN Reason for Consult*: Pelvic pain [facility] Consult HPI History of Present Illness Tenisha Mclain is a 47 year old female seen in the emergency room as a consultation for pelvic pain. Patient recently went on a car trip and experienced exacerbation of acute pelvic pain. Pain is somewhat relieved when she lays flat on her stomach, but never totally resolved. Patient gives history of longstanding greater than 4 years of pelvic pain. Her LMP approximately 4 to 5 years ago when she was seen by INFORMATION SECURITY SYSTEMS INSTRUCTOR and treatment using an IUD was advised but patient declined. Patient is not denies any pelvic bleeding or vaginal discharge. She denies nausea vomiting diarrhea constipation. Patient denies any problems voiding or with bowel movements. Reviewed pelvic ultrasound? Uterus slightly enlarged with Endometrium 15mm. No specific adnexal mass, blood flow undetermined d/t obesity. Reviewed CT?essentially unremarkable Advised patient to take ibuprofen 800 mg p.o. with food for pain, and to follow-up with YARN COMBER for further work-up if pain is not resolved. Patient understands and agrees... Medications/Allergies Allergies Allergy/AdvReac Type Severity Reaction Status Date / Time Alpha-Gal Allergy ADR-Gastrointestinal Verified 01/14/23 10:25 (Dsxuqfphb-Yxsjg-1,3-Gala Upset PFSH YARN COMBER PFSH: Medical History Allergy to alpha-gal Hyperthyroidism Surgical History Hx of section Hx of cholecystectomy Social History Smoking and tobacco status: never smoked Second hand smoke exposure: No Alcohol intake: never Vitals/I&O/Wt Last Vital Signs Pulse 67 01/14/23 10:21 Resp 18 01/14/23 11:14 BP 174/76 01/14/23 11:11 Pulse Ox 97 01/14/23 11:11 O2 Del Method 01/14/23 11:11 Weight last 48 hrs Weight 131.088 kg Physical Exam : COMMON NORMALS: Yes normal bimanual exam BIMANUAL EXAM - VAGINA & UTERUS: Yes normal bimanual exam, Yes normal palpation, Yes uterine size normal, Yes uterine shape normal, Yes uterine mobility normal, Yes consistency normal and Yes non-tender BIMANUAL EXAM - ADNEXA, OTHER: Yes tender OTHER: Right adnexal tenderness noted, no enlargement of the ovary palpated. Left adnexa no tenderness. Data 01/14/23 11:04 01/14/23 11:04 A&P Assessment and plan (1) Abdominal pain: Plan A. Postmenopausal female with chronic pelvic pain with acute exacerbation Nonspecific pelvic pain in the right adnexa Obesity P. Patient to see INFORMATION SECURITY SYSTEMS INSTRUCTOR in town if pain continues Ibuprofen 800 mg p.o. every 6 to 8 hours with food if needed Coding Level of Care Code Acute Code for Chg Fwd Diagnoses Abdominal pain R10.9
--- NOTE | 2023-01-17 14:58 | DCPLANNER ---
Addendum entered by Deloris Estrada 01/27/23 08:41: Patient attended appointment Addendum entered by Deloris Estrada 01/17/23 16:01: Patient called case liner back stating that she would like to get established with a primary care physician. marketing automation manager called [facility], gave clinic patients information, a follow up appointment was scheduled for December at 1:[address] Fan. marketing automation manager gave patient the appointment information. Original Note: marketing automation manager called patient due to no primary care physician - no answer at this time, a voicemail was left for patient to return case briefer phone call
== END 2023-01-14 15:41 | disposition home or self-care (01) ==
PROVIDERS: Emergency Provider Emergency Medicine
DX: R10.31 Right lower quadrant pain (principal)
CPT/HCPCS: 12345; 36415; 74177; 76856; 80053; 81003; 84703; 85025; 96372; 99285; J2270; Q9967

== ENCOUNTER → 2023-03-06 13:00 | Outpatient (BNVA) | payer MEDICAID, SELFPAY | PROVIDERS: PCP Family Medicine Adult Medicine; Visit Provider Obstetrics & Gynecology | DX: N91.1 Secondary amenorrhea (principal); E03.9 Hypothyroidism, unspecified; Z12.4 Encounter for screening for malignant neoplasm of cervix; R10.2 Pelvic and perineal pain; G89.29 Other chronic pain | CPT/HCPCS: 87624 ==

== ENCOUNTER → 2023-04-06 10:22 | Outpatient (BNVA) | payer MEDICAID, SELFPAY | PROVIDERS: PCP Family Medicine Adult Medicine; Visit Provider Obstetrics & Gynecology | DX: R10.2 Pelvic and perineal pain (principal); N85.2 Hypertrophy of uterus; R93.89 Abnormal findings on diagnostic imaging of other specified body structures | CPT/HCPCS: 76830 ==

== ENCOUNTER 2023-05-03 09:35 | Day surgery (SDC) | payer MEDICAID, SELFPAY ==
--- NOTE | 2023-04-25 10:24 | P.ANESASSM_ITS ---
Pre-Anesthetic Assessment Height/Weight: Height 1.57 m Weight 130.181 kg Operation Date: 05/03/23 12:55 Proposed Procedures p Hysteroscopy with polypectomy via Myosure 87162,N84.0(Not Applicable) - Joey Forrester MD s Poylpectomy(Not Applicable) - Joey Forrester MD Familial anesthetic complications: Alpha gal allergies Was Beta Braden taken within 24 hours: N/A Was Clonidine taken within 24 hours: N/A Social No alcohol and No tobacco Exam alert, oriented x 3, clear to auscultation bilaterally and regular rate & rhythm Airway Mallampati: Class II Dentition: false Pulmonary Asthma Metabolic Thyroid Disease Anesthetic Plan ASA status: 3 Anesthesia: General Risk of > 500 ml blood loss (7ml/kg in children): No Medications/Allergies Home Medications Medication Instructions Recorded Confirmed Last Taken Type meclizine 25 mg tablet 25 mg PO QID PRN dizziness #20 tabs 06/20/22 04/25/23 04/25/23 Rx albuterol sulfate 90 mcg/actuation 2 puff inhalation Q6H PRN 01/30/23 04/25/23 04/25/23 History aerosol inhaler Respiratory Distress epinephrine 0.3 mg/0.3 mL 0.3 mg IM Q4H PRN Anaphylaxis 01/30/23 04/25/23 Unknown History injection, auto-injector (EpiPen 2-Thony) fluticasone propionate 50 1 spray intranasal DAILY 03/06/23 04/25/23 04/25/23 History mcg/actuation nasal spray,suspension (Allergy Relief (fluticasone)) levothyroxine 25 mcg capsule 25 mcg PO DAILY 03/06/23 04/25/23 04/25/23 History amoxicillin 500 mg capsule mg 04/25/23 Unknown History prednisone 10 mg tablet 10 mg PO DIRECTED 04/25/23 04/25/23 04/25/23 History Allergies Allergy/AdvReac Type Severity Reaction Status Date / Time Sulfa (Sulfonamide Allergy Mild Unknown Verified 04/25/23 09:41 Antibiotics) Alpha-Gal Allergy ADR-Gastrointestinal Verified 04/25/23 09:41 (Knnhxgsfl-Nkhmq-3,3-Gala Upset [facility] Anesthesia Medical History Allergic reaction to zrxohymqo-pdkpc-1,3-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 History of labyrinthitis Hypothyroidism Tinnitus of both ears TMJ arthralgia Surgical History Hx of section Hx of cholecystectomy Family History Mother Diabetes type 1 -- dx at age 13 Stroke Grandfather Hypertension maternal Denies family history of Colon cancer Ovarian cancer Heart disease Hyperlipidemia Breast cancer Uterine cancer Thyroid condition Data Anesthesia 04/25/23 10:08 04/25/23 10:08 Cardiac Studies: No Data to Display
[2023-04-25 10:34] LABS: Basophils % 0.3 %; Eosinophils % 0.2 %; Hematocrit 43.6 % (37.0-47.0); Hemoglobin 15.1 g/dL (11.5-15.3); Lymphocytes # 1.9 10^3/uL (0.8-4.8); Mean Corpuscular HGB Conc 34.6 g/dL (30.0-36.0); Mean Corpuscular Hemoglobin 32.7 pg (28.0-34.0); Mean Corpuscular Volume 94.4 fl (81-99); Mean Platelet Volume 9.4 fL (7.4-10.4); Monocytes # 0.6 10^3/uL (0.2-0.9); Neutrophils # 6.65 10^3/uL (1.8-7.7); Nucleated Red Blood Cells % 0 %; Platelet Count 167 10^3/cmm (130-400); Red Blood Count 4.62 10^6/uL (4.1-5.3); Red Cell Distribution Width 13.3 % (12.1-15.1); White Blood Count 9.2 10^3/uL (4.0-10.0)
[2023-04-25 10:49] LABS: Alanine Aminotransferase 25 U/L (0-33); Albumin Level 3.9 g/dL (3.5-5.2); Alkaline Phosphatase 112 U/L (35-105); Anion Gap 17.7 (5-19); Aspartate Amino Transferase 7 U/L (0-32); Blood Urea Nitrogen 12 mg/dL (6-20); Calcium 9.1 mg/dL (8.5-10.5); Carbon Dioxide 24 mmol/L (22-29); Chloride 98 mmol/L (98-107); Globulin 3.2 g/dL (1.3-4.6); Glomerular Filtration Rate 88.9 mL/min (90-130); Glucose 282 mg/dL (65-115); Osmolality Calculated 292 mOsm/kg (285-295); Potassium 3.7 mmol/L (3.5-5.1); Sodium 136 mmol/L (136-145); Total Bilirubin 0.8 mg/dL (0.15-1.2); Total Protein 7.1 g/dL (6.6-8.7)
[2023-04-25 10:51] LABS: Add Urine Microscopic? YES; Bilirubin Urine Neg (Negative); Blood Urine Neg (Negative); Glucose Urine UA Norm (Normal); Ketones Urine Negative (Negative); Leukocyte Esterase Urine Negative (Negative); Nitrate Urine Negative (Negative); Protein Urine Neg (Negative); Specific Gravity, Urine 1.015 (1.005-1.030); Urine Appearance SL Hazy (CLEAR); Urine Color Light yellow (Yellow); Urobilinogen Urine Norm (Negative); pH Urine 6 (5-7)
[2023-04-25 11:18] LABS: Bacteria Urine 1+ /hpf; RBC Urine RARE /hpf (0-2); Squamous Epithelial Cell Urine 0-4 /hpf (0-5); WBC Urine 0-4 /hpf (0-5)
[2023-04-25 11:19] LABS: Add Urine Culture? No
[2023-05-03] VITALS (10 sets, daily range): BP systolic 107–166; BP diastolic 77–100; PULSE 87–109; RESP 16–22; TEMP 36.3–36.8; O2SAT 92–99
[2023-05-03 10:10] LABS: OR HCG Qualitative Urine Negative (Negative)
[2023-05-03] MEDS: sodium chloride 0.9% 1,000 ML 30 ML IV (10:23)
[2023-05-03] MEDS: enoxaparin 30 mg/0.3 mL Syringe SUBCUT (10:23)
[2023-05-03] MEDS: scopolamine 1.5 Patch 1 PATCH TRANSDERMA (10:25)
--- NOTE | 2023-05-03 11:18 | W.PM.OPSUD ---
Surgery/Procedure H&P Update DATE OF PROCEDURE: May 03, 2023 DATE H&P PERFORMED: 05/25/23 H&P UPDATE INFORMATION: I have reviewed H&P completed within last 30 days, I have examined patient prior to procedure and No changes to prior documentation PREOP DIAGNOSIS: Pelvic pain, endometrial polyp PLANNED PROCEDURE: Operation Date: 05/03/23 11:30 Proposed Procedures p Hysteroscopy with polypectomy via Myosure 13367,N84.0(Not Applicable) - Joey Forrester MD s Poylpectomy(Not Applicable) - Joey Forrester MD
[2023-05-03] MEDS: ceFAZolin 3,000 MG in sodium chloride 0.9% (100 ml) 100 ML 200 MG IV (11:28)
[2023-05-03] MEDS: lidocaine-epi 2% 20 mL INJ 10 ML INJECTION (12:10)
--- NOTE | 2023-05-03 12:20 | P.ANESUD_ITS ---
Pre-Anesthetic Update Pre-Anesthetic Assessment: Date of Surgery/Procedure: 05/03/23 Preop Janel gnosis: Pelvic pain, endometrial polyp Proposed Procedure: Operation Date: 05/03/23 11:30 Proposed Procedures p Hysteroscopy with polypectomy via Myosure 76923,N84.0(Not Applicable) - Joey Forrester MD s Poylpectomy(Not Applicable) - Joey Forrester MD Any changes to Pre-Anesthetic Assessment?: No Last Intake: Intake Last Liquid Date 05/02/23 Last Liquid Time 19:00 Last Solid Date 05/02/23 Last Solid Time 19:00 Labs Last 48hrs: Blood Bank 05/03/23 10:19 Blood Type O Positive Rho(D) Type Positive Antibody Screen Negative Vitals: Temperature 97.4 F L 05/03/23 10:00 Temperature Source Temporal Artery S can 05/03/23 10:00 Pulse Rate 87 05/03/23 10:00 Respiratory Rate 18 05/03/23 10:00 Blood Pressure 153/100 05/03/23 10:00 Blood Pressure Racheal n 117 05/03/23 10:00 Pulse Oximetry 97 05/03/23 10:00 Oxygen Delivery Me thod Room Air 05/03/23 10:01 Exam: Pre-Anes Outpt Exam: alert, oriented x 3, clear to auscultation bilaterally and regular rate & rhythm Cardiac Studies: No Data to Display
--- NOTE | 2023-05-03 12:27 | PM.OP ---
Operative Report Date of procedure: May 03, 2023 Pre-op diagnosis: Preop Diagnosis Pelvic pain, endometrial polyp Post-op diagnosis: Same as above Post-op findings: Multiple endometrial polyps Procedure done: Hysteroscopy with dilation and curettage Endoscopic polypectomy Specimens removed/disposition: Endometrial polyps Surgeon: Joey Forrester MD Estimated blood loss (mL): 25 IV fluids (mL): 600 Findings: Multiple endometrial polyps Procedure: After informed consent, the risks included but were not limited to bleeding, infection, injury to internal organs. The patient was counseled on a possible laparotomy and on the potential need for hysterectomy. The patient expressed understanding of the risks involved, all questions were answered, and the patient consented to the procedure. The patient was taken to the operating room where general anesthesia was administered. She was placed in the dorsal lithotomy position and prepped and draped in sterile fashion. A time out procedure was performed. The patient was examined under anesthesia and found to have a normal uterus with normal adnexa. A sterile weight speculum was placed in the vagina. The uterus was then gently sounded to 8 cm, and the cervix was dilated. The 0 degrees MyoSure hysteroscope was advanced gently to the uterine fundus while visualizing the monitor. Survey of the uterine cavity showed: Multiple polyps from anterior and posterior wall, the fundus shows normal proliferative endometrium with polyp; left ostium was visualized, and lateral wall with proliferative endometrium; right ostium visualized, and lateral wall with proliferative endometrium; anterior and posterior guidry are with proliferative endometrium with polyps; endocervical canal is normal. The MyoSure device was advanced and the direct visualization the multiple polyps were morcellated without complication. At the end of morcellation the fluid deficit was 670 mL and was estimated at approximately 500 mL were on the floor. There was minimal bleeding noted and the tenaculum removed with goad hemostasis noted. The patient tolerated the procedure well. The patient was taken to the recovery area in stable condition. I spent 35 minutes with the patient in discussion and counseling as documented above This documentation was created by [employer] volunteer recruiter software (known for inherent volunteer recruiter error). Every effort was made to assure accuracy of volunteer recruiter. Any obvious errors or omissions should be clarified with the author of the document.
[2023-05-03] MEDS: ipratropium-albuterol 3 mL Neb (12:55)
--- NOTE | 2023-05-03 16:37 | ANE.PACU2 ---
Inpatient post-anesthesia follow up: Airway intact: Yes Vital signs: Temperature 97.4 F Pulse Rate 103 Respiratory Rate 18 Blood Pressure 160/90 Pulse Oximetry 94 Oxygen Delivery Me thod Room Air Oxygen Flow Rate 6 Fraction of Inspir ed Oxygen Hydration adequate: Yes Nausea and vomiting: No Pain level: 3 Mental status: Baseline
== END 2023-05-03 13:48 | disposition home or self-care (01) ==
PROVIDERS: PCP Nurse Practitioner Family; Visit Provider Obstetrics & Gynecology
PROC: 0UDB8ZZ Extraction of Endometrium, Via Natural or Artificial Opening Endoscopic (ICD-10-PCS; CPT 58558; principal; 2023-05-03 11:20)
PROC: (CPT 58558; 2023-05-03 11:20)
DX: N84.0 Polyp of corpus uteri (principal); J45.909 Unspecified asthma, uncomplicated; E03.9 Hypothyroidism, unspecified; Z79.52 Long term (current) use of systemic steroids
CPT/HCPCS: 58558; 36415; 80053; 81001; 81025; 84703; 85025; 86850; 86900; 88305; J0131; J0690; J1100; J1650; J2250; J2405; J2704; J3010; J3490; J3535; J7030

== ENCOUNTER 2023-05-05 17:40 | Emergency (ER) | payer MEDICAID, SELFPAY ==
[2023-05-05 17:46] VITALS: BP 194/139; PULSE 89; RESP 17; O2SAT 96; BMI 53.2
--- NOTE | 2023-05-05 17:50 | XRR_ITS ---
PROCEDURE INFORMATION: Exam: XR Chest Exam date and time: 05/05/2023 7:02 PM Age: 48 years old Clinical indication: Pain; Chest pressure; Additional info: Pleurisy, S/P surger TECHNIQUE: Imaging protocol: Radiologic exam of the chest. Views: 2 views. COMPARISON: CR XR chest 2V* [id number] 12/06/2018 12:28 PM FINDINGS: Lungs: Unremarkable. No consolidation. Pleural spaces: Unremarkable. No pleural effusion. No pneumothorax. Heart/Mediastinum: Unremarkable. No cardiomegaly. Bones/joints: Unremarkable. XR/XR chest 2V* [id number] IMPRESSION: No acute findings.
--- NOTE | 2023-05-05 17:55 | ECG_ITS ---
[facility] Test Date: 2023-05-05 Pat Name: Tenisha Mclain Department: Room: Gender: Female Physical Therapist: : 1975 Requested By: Kun Parson Order Number: [id number] Charis MD: Hiram Marte M.D. Measurements Intervals [place] Rate: 80 P: 61 ME: 137 QRS: -19 QRSD: 111 T: 29 QT: 375 QTc: 433 Interpretive Statements SINUS RHYTHM LOW QRS VOLTAGE IN PRECORDIAL LEADS [QRS DEFLECTION < 1.0 mV IN CHEST LEADS] PATTERN CONSISTENT WITH PULMONARY DISEASE INCOMPLETE RIGHT BUNDLE BRANCH BLOCK [90+ ms QRS DURATION, TERMINAL R IN V1/V2, 40+ ms S IN I/aVL/V4/V5/V6] Compared to ECG 06/20/2022 05:43:15 T-wave abnormality no longer present Electronically Signed On 05-06-2023 1:09:48 CDT by Hiram Marte M.D. [email or web address]
[2023-05-05 18:43] LABS: Basophils % 0.4 %; Eosinophils % 0.2 %; Hematocrit 42.5 % (37.0-47.0); Hemoglobin 14.3 g/dL (11.5-15.3); Lymphocytes % 35.8 %; Mean Corpuscular HGB Conc 33.6 g/dL (30.0-36.0); Mean Corpuscular Hemoglobin 32.6 pg (28.0-34.0); Mean Corpuscular Volume 96.8 fl (81-99); Mean Platelet Volume 9.5 fL (7.4-10.4); Monocytes # 0.5 10^3/uL (0.2-0.9); Monocytes % 6.2 %; Neutrophils % 57.2 %; Nucleated Red Blood Cells % 0 %; Platelet Count 144 10^3/cmm (130-400); Red Blood Count 4.39 10^6/uL (4.1-5.3); White Blood Count 8.2 10^3/uL (4.0-10.0)
[2023-05-05 18:49] VITALS: BP 148/101; PULSE 73; O2SAT 100
[2023-05-05 19:00] LABS: D Dimer 0.57 ug/mIFEU (0-0.59)
[2023-05-05 19:10] LABS: Troponin T (5th) Once 6 ng/L (0-10)
[2023-05-05 19:13] LABS: Alanine Aminotransferase 26 U/L (0-33); Alkaline Phosphatase 92 U/L (35-105); Anion Gap 13.8 (5-19); Aspartate Amino Transferase 8 U/L (0-32); Blood Urea Nitrogen 9 mg/dL (6-20); Carbon Dioxide 27 mmol/L (22-29); Chloride 103 mmol/L (98-107); Globulin 2.7 g/dL (1.3-4.6); Glomerular Filtration Rate 88.9 mL/min (90-130); Glucose 143 mg/dL (65-115); Osmolality Calculated 291 mOsm/kg (285-295); Potassium 3.8 mmol/L (3.5-5.1); Sodium 140 mmol/L (136-145); Total Bilirubin 0.9 mg/dL (0.15-1.2); Total Protein 6.7 g/dL (6.6-8.7)
[2023-05-05] MEDS: ipratropium-albuterol 3 mL Neb INHALATION (19:58)
[2023-05-05 20:37] VITALS: BP 165/134
[2023-05-05] MEDS: amlodipine 10 mg Tablet PO (20:37)
[2023-05-05] MEDS: cloNIDine 0.1 mg Tablet 0.2 MG PO (20:37)
[2023-05-05] MEDS: oxyCODONE-APAP 5-325 mg Tablet 2 TAB PO (20:38)
[2023-05-05] MEDS: dexamethasone 4 mg Tablet 10 MG PO (20:39)
[2023-05-05 21:38] VITALS: BP 104/75; PULSE 78; RESP 16; O2SAT 90
[2023-05-05 23:06] VITALS: BP 104/76; PULSE 80; RESP 16; O2SAT 96
--- NOTE | 2023-05-06 02:16 | ED_ITS ---
HPI - SOB/Dyspnea General: Chief Complaint: Shortness of Breath/Dyspnea Stated Complaint: Hurt breath, SOB, surgery done monday Time Seen by Provider: 05/05/23 18:38 Source: patient and family History of Present Illness: HPI Narrative: 48-year-old female who is postop day 2 from a surgery to remove ureteral polyps. She seemed to do well postoperatively, but today developed increased cough, with airway irritation, shortness of breath, and pain with inspiration and cough. She was seen in urgent care, and urged to come here because of tachycardia, shortness of breath, and being postoperative day 2. She presents with pain with coughing, pain with inspiration, change in her voice. Evidently, immediately postoperatively she was talking normally and voice change happened today. She did vomit 1 time today, but had some of the symptoms prior. She does have a history of asthma. MD elicited complaint: shortness of breath, cough and pain with inspiration Pertinent past history: asthma and other Onset (ago): hour(s) Timing: constant Severity: moderate Exacerbating factors: exertion and coughing Relieving factors: nothing Known history of: asthma Associated symptoms: Reports abdominal pain (Minimal postoperative), chest pain (With cough), cough and vomiting (1); Deny chest congestion, fever(s), hemoptysis or lightheadedness Treatment prior to arrival: none Review of Systems Const: Denies: fever(s) ENMT: Reports: throat pain Card: Reports: chest pain (With cough); Denies: lightheadedness Resp: Denies: hemoptysis or chest congestion GI: Reports: abdominal pain (Minimal postoperative) and vomiting (1) Musc: Denies: neck pain Skin/Breast: Denies: rash Neuro: Denies: headache(s) Psych: Reports: anxiety PFSH ED PFSH: Medical History Allergic reaction to mybbwqvln-glier-8,3-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 History of labyrinthitis Hypothyroidism Tinnitus of both ears TMJ arthralgia Surgical History Hx of section Hx of cholecystectomy Family History Mother Diabetes type 1 -- dx at age 13 Stroke Grandfather Hypertension maternal Denies family history of Colon cancer Ovarian cancer Heart disease Hyperlipidemia Breast cancer Uterine cancer Thyroid condition Physical Exam Const: COMMON NORMALS: no acute distress GENERAL APPEARANCE: cooperative; not ill appearing and not frail appearing HENMT: COMMON NORMALS: normocephalic, atraumatic and Normal external nose present HEAD & SCALP: normocephalic and atraumatic FACE & SINUS: normal f acial exam and face symmetric NOSE: Normal external nose present Eye: COMMON NORMALS: Equal, round and reactive pupils present and EOMs intact bilaterally PUPIL: Yes Equal, round and reactive pupils present Neck/C-Spine: GENERAL: Yes trachea midline Chest: CHEST: Yes Symmetrical chest wall rise Resp: COMMON NORMALS: normal respiratory effort, No retractions, No use of accessory muscles and clear to auscultation bilaterally AUSCULTATION: clear to auscultation bilaterally Cardio: COMMON NORMALS: regular rate and regular rhythm RATE: regular rate RHYTHM: regular rhythm GI: COMMON NORMALS: Normal to inspection, nondistended, normoactive bowel sounds present Extremity: COMMON NORMALS: no pedal edema Neuro: JEANETTE COMA SCALE: document GCS findings [place] coma scale eye opening: Spontaneous [place] coma scale verbal response: Orientated [place] coma scale motor response: Obey commands [place] coma scale total score: 15 SENSORY EXAM: Yes extremities (intact) Psych: COMMON NORMALS: speech normal SPEECH: Yes normal speech MOOD & AFFECT: Yes anxious Skin: COMMON NORMALS: no rashes or lesions noted GENERAL SKIN EXAM: no rashes or lesions noted Course Vital Signs: Vital signs: Vital Signs Pulse Rate 80 05/05/23 23:06 Respiratory Rate 16 05/05/23 23:06 Blood Pressure 104/76 05/05/23 23:06 Pulse Oximetry 96 05/05/23 23:06 Oxygen Delivery Me thod Room Air 05/05/23 21:38 MDM - SOB/Dyspnea Medical Decision Making Patient was anxious and hypertensive. Hypertension was quite significant. Chest x-ray is negative. EKG shows a sinus rhythm. D-dimer was 0.57. Troponin is 6. CBC is normal. Patient was given nebulizer treatment, dexamethasone and pain medication with essential resolution of her cough and pain. She is also given clonidine and amlodipine for hypertension, which is now resolved. She wishes to go home. She is nontachycardic. She will be allowed discharge. We will continue steroids in a tapering fashion, have her use humidified air, nebulizer treatments, etc. She knows to return for worsening symptoms. Lab Data 05/05/23 18:29 05/05/23 18: Labs/Radiology: Radiology Impressions Chest X-Ray 05/05/23 17:50 IMPRESSION: No acute findings. Laboratory Results WBC 8.2 10^3/uL (4.0-10.0) 05/05/23 18: RBC 4.39 10^6/uL (4.1-5.3) 05/05/23 18: Hgb 14.3 g/dL (11.5-15.3) 05/05/23 18: Hct 42.5 % (37.0-47.0) 05/05/23 18: MCV 96.8 fl (81-99) 05/05/23 18: MCH 32.6 pg (28.0-34.0) 05/05/23 18: MCHC 33.6 g/dL (30.0-36.0) 05/05/23 18: RDW 13.0 % (12.1-15.1) 05/05/23 18: Plt Count 144 10^3/cmm (130-400) 05/05/23 18: MPV 9.5 fL (7.4-10.4) 05/05/23 18: Neut % (Auto) 57.2 % 05/05/23 18: Lymph % (Auto) 35.8 % 05/05/23 18: [place] % (Auto) 6.2 % 05/05/23 18: Eos % (Auto) 0.2 % 05/05/23 18: Baso % (Auto) 0.4 % 05/05/23 18: Neut # (Auto) 4.70 10^3/uL (1.8-7.7) 05/05/23 18: Lymph # (Auto) 3.0 10^3/uL (0.8-4.8) 05/05/23 18: [place] # (Auto) 0.5 10^3/uL (0.2-0.9) 05/05/23 18: Eos # (Auto) 0.0 10^3/uL (0.0-0.8) 05/05/23 18:29 Baso # (Auto) 0.0 10^3/uL (0.0-0.1) 05/05/23 18: Nucleated RBC % (auto) 0 % 05/05/23 18: Nucleated RBCs # 0.0 /100WBC 05/05/23 18: D-Dimer 0.57 ug/mIFEU (0-0.59) 05/05/23 18:29 Sodium 140 mmol/L (136-145) 05/05/23 18: Potassium 3.8 mmol/L (3.5-5.1) 05/05/23 18: Chloride 103 mmol/L (98-107) 05/05/23 18: Carbon Dioxide 27 mmol/L (22-29) 05/05/23 18: Anion Gap 13.8 (5-19) 05/05/23 18: BUN 9 mg/dL (6-20) 05/05/23 18: Creatinine 0.7 mg/dL (0.5-0.9) 05/05/23 18: GFR Calculation 88.9 mL/min (90-130) L 05/05/23 18: Glucose 143 mg/dL (65-115) H 05/05/23 18: Calculated Osmolality 291 mOsm/kg (285-295) 05/05/23 18: Calcium 9.0 mg/dL (8.5-10.5) 05/05/23 18: Total Bilirubin 0.9 mg/dL (0.15-1.2) 05/05/23 18: AST 8 U/L (0-32) 05/05/23 18: ALT 26 U/L (0-33) 05/05/23 18: Alkaline Phosphatase 92 U/L (35-105) 05/05/23 18: Troponin T Gen 5 ng/L 6 ng/L (0-10) 05/05/23 18: Total Protein 6.7 g/dL (6.6-8.7) 05/05/23 18: Albumin 4.0 g/dL (3.5-5.2) 05/05/23 18: Globulin 2.7 g/dL (1.3-4.6) 05/05/23 18:29 Discharge Plan Discharge Patient Disposition: Home Clinical Impression: Pneumonitis Condition: Stable Prescriptions: New Medrol (Thony) 4 mg tablets,dose pack See Rx Instructions .ROUTE .COMPLEX Qty: 21 0RF Rx Instructions: orally per package directions No Action albuterol sulfate 90 mcg/actuation HFA aerosol inhaler 2 puff inhalation Q6H PRN (Reason: Respiratory Distress) epinephrine [EpiPen 2-Thony] 0.3 mg/0.3 mL auto-injector 0.3 mg IM Q4H PRN (Reason: Anaphylaxis) levothyroxine 25 mcg capsule 25 mcg PO DAILY fluticasone propionate [Allergy Relief (fluticasone)] 50 mcg/actuation spray,suspension 1 spray intranasal DAILY Rx Instructions: administer into each nostril meclizine 25 mg tablet 25 mg PO QID PRN (Reason: dizziness) Qty: 20 0RF ibuprofen 800 mg tablet 800 mg PO TID PRN (Reason: pain) Qty: 60 0RF acetaminophen 325 mg capsule 325 mg PO Q4H PRN (Reason: fever or pain) Qty: 60 0RF Discharge Orders: Discharge ED (Routine); Ordered 05/05/23 Ordered By: Khoa Brady Referrals: Annie Casey [Primary Care Provider] - 1-3 days Patient Instructions: Pneumonitis (ED), Opioid Safety, Pain Management Activity Restrictions/Additional Instructions: Return for fever, worsening pain or shortness of breath despite treatment, blood in the sputum, any other concerning symptoms. Medications as directed. Use your inhaler or nebulizer machine 4 times daily for the next 48 hours, then as needed. Humidified air may help Coding Level of Care Code ED [place] Worker for Alena Torres
== END 2023-05-05 22:42 | disposition home or self-care (01) ==
PROVIDERS: Nurse Practitioner Family; Emergency Provider Emergency Medicine; PCP Nurse Practitioner Family
DX: J18.9 Pneumonia, unspecified organism (principal)
CPT/HCPCS: 36415; 71046; 80053; 84484; 85025; 85378; 93005; 99285; J8540

== ENCOUNTER → 2023-06-27 10:57 | Outpatient (BNVA) | payer MEDICAID, SELFPAY | PROVIDERS: PCP Nurse Practitioner Family; Visit Provider Obstetrics & Gynecology | DX: R10.2 Pelvic and perineal pain (principal); N85.2 Hypertrophy of uterus | CPT/HCPCS: 76830 ==

== ENCOUNTER 2023-09-14 07:54 | Outpatient (CLI) | payer MEDICAID, SELFPAY ==
--- NOTE | 2023-09-14 08:45 | MR_ITS ---
WS: [id number] MRI BRAIN WITH HIGH-RESOLUTION IMAGING THROUGH THE INTERNAL AUDITORY CANALS WITHOUT AND WITH CONTRAST HISTORY: hearing loss COMPARISON: None available. TECHNIQUE: Multiplanar, multisequence imaging is performed through the brain. Additional 3 mm imaging performed in multiple planes through the internal auditory canal. Postcontrast imaging with 20 ml's of MultiHance. No acute intracranial hemorrhage, midline shift, edema or mass effect. Diffusion imaging is normal. No prior infarct. Ventricles and extra-axial spaces are normal. No inferior displacement of cerebellar tonsils. Clivus and pituitary gland are normal. Internal and external auditory canals: Unremarkable. Cranial nerves VII and VIII complexes: Unremarkable. No enhancement or mass. Cerebellopontine angles: Normal. Paranasal sinuses: Normal. Mastoid air cells: Normal. Calvarium and scalp: Normal. Visualized [place] and dural venous sinuses demonstrate no abnormality. IMPRESSION: Normal MRI IACs.
== END 2023-09-14 07:55 | disposition home or self-care (01) ==
LOC: RAD 07:55
PROVIDERS: PCP Nurse Practitioner Family; Visit Provider Otolaryngology
DX: H90.6 Mixed conductive and sensorineural hearing loss, bilateral (principal)
CPT/HCPCS: 70553

== ENCOUNTER → 2023-09-15 10:15 | Outpatient (BNVA) | payer MEDICAID, SELFPAY | PROVIDERS: PCP Nurse Practitioner Family; Visit Provider Student in an Organized Health Care Education/Training Program | DX: M25.521 Pain in right elbow (principal); M77.11 Lateral epicondylitis, right elbow | CPT/HCPCS: 73080 ==

== ENCOUNTER 2023-09-26 14:49 | Inpatient (IN) | payer MEDICAID, SELFPAY ==
[2023-09-18 10:28] LABS: Add Urine Microscopic? NO; Charge for UA Resulting for Rev
[2023-09-18 10:33] LABS: Bilirubin Urine Neg (Negative); Blood Urine Neg (Negative); Glucose Urine UA Norm (Normal); Ketones Urine Negative (Negative); Leukocyte Esterase Urine Negative (Negative); Nitrate Urine Negative (Negative); Protein Urine Neg (Negative); Specific Gravity, Urine 1.015 (1.005-1.030); Urine Appearance Clear (CLEAR); Urine Color Yellow (Yellow); Urobilinogen Urine Neg (Negative); pH Urine 6 (5-7)
[2023-09-18 10:47] LABS: OR HCG Qualitative Urine Negative (Negative)
[2023-09-18 11:03] LABS: Basophils % 0.4 %; Eosinophils # 0.1 10^3/uL (0.0-0.8); Hematocrit 43.1 % (36-47); Lymphocytes # 1.8 10^3/uL (0.8-4.8); Lymphocytes % 35.1 %; Mean Corpuscular HGB Conc 33.6 g/dL (30-55); Mean Corpuscular Hemoglobin 30.6 pg (27-33); Mean Corpuscular Volume 90.9 fl (85-98); Mean Platelet Volume 9.3 fL (7.4-10.4); Monocytes # 0.3 10^3/uL (0.2-0.9); Monocytes % 5.4 %; Neutrophils # 2.92 10^3/uL (1.8-7.7); Neutrophils % 57.9 %; Nucleated Red Blood Cells % 0 %; Platelet Count 158 10^3/cmm (157-399); Red Blood Count 4.74 10^6/uL (3.85-5.65); Red Cell Distribution Width 12.4 % (12.1-15.1); White Blood Count 5.04 10^3/uL (3.29-11.43)
[2023-09-18 11:24] LABS: Alanine Aminotransferase 29 U/L (0-33); Albumin Level 4.2 g/dL (3.5-5.2); Alkaline Phosphatase 111 U/L (35-105); Anion Gap 17.4 (5-19); Aspartate Amino Transferase 16 U/L (0-32); Blood Urea Nitrogen 9 mg/dL (6-20); Calcium 9.6 mg/dL (8.5-10.5); Carbon Dioxide 25 mmol/L (22-29); Chloride 103 mmol/L (98-107); Globulin 3.2 g/dL (1.3-4.6); Glomerular Filtration Rate 88.9 mL/min (90-130); Glucose 174 mg/dL (65-115); Osmolality Calculated 295 mOsm/kg (285-295); Potassium 4.4 mmol/L (3.5-5.1); Sodium 141 mmol/L (136-145); Total Bilirubin 1.7 mg/dL (0.15-1.2); Total Protein 7.4 g/dL (6.6-8.7)
--- NOTE | 2023-09-18 13:30 | P.ANESASSM_ITS ---
Pre-Anesthetic Assessment Height/Weight: Height 1.57 m Preop Diagnosis: chronic ppelvic pain, enlarged uterus. Operation Date: 09/26/23 09:25 Proposed Procedures p Laparoscopic assisted vaginal hysterectomy, bilateral salpingo-oophorectomy 64721, R10.2, G89.29 , N85.2(Not Applicable) - Joey Forrester MD Familial anesthetic complications: Alpha-GAL Was Beta Braden taken within 24 hours: N/A Was Clonidine taken within 24 hours: N/A Social No alcohol and No tobacco Exam alert, oriented x 3, clear to auscultation bilaterally and regular rate & rhythm Airway Submandibular: within normal limits Cervical ROM: within normal limits Mallampati: Class II Dentition: chipped and partials Pulmonary Asthma Metabolic Morbid Obesity and Thyroid Disease Anesthetic Plan ASA status: 3 Anesthesia: General Medications/Allergies Home Medications Medication Instructions Recorded Confirmed Last Taken Type meclizine 25 mg tablet 25 mg PO QID PRN dizziness #20 tabs 06/20/22 09/18/23 04/25/23 Rx albuterol sulfate 90 mcg/actuation 2 puff inhalation Q6H PRN 01/30/23 09/18/23 09/17/23 History aerosol inhaler Respiratory Distress epinephrine 0.3 mg/0.3 mL 0.3 mg IM Q4H PRN Anaphylaxis 01/30/23 09/18/23 Unknown History injection, auto-injector (EpiPen 2-Thony) fluticasone propionate 50 1 spray intranasal DAILY PRN 03/06/23 09/18/23 04/25/23 History mcg/actuation nasal allergies spray,suspension (Allergy Relief (fluticasone)) levothyroxine 25 mcg capsule 25 mcg PO DAILY 03/06/23 09/18/23 09/18/23 History acetaminophen 325 mg capsule 325 mg PO Q4H PRN fever or pain 05/03/23 09/18/23 Unknown Rx #60 caps ibuprofen 800 mg tablet 800 mg PO TID PRN pain #60 tabs 05/03/23 09/18/23 Unknown Rx cetirizine 10 mg tablet (Zyrtec) 10 mg PO DAILY PRN allergies 07/10/23 09/18/23 Unknown History albuterol sulfate 2.5 mg/3 mL 2.5 mg (3 mL) inhalation Q4H PRN 08/22/23 09/18/23 Unknown Rx (0.083 %) solution for nebulization shortness of breath or wheezing #75 mL diclofenac sodium 1 % topical gel 4 g topical QID #100 grams 09/15/23 09/18/23 09/17/23 Rx (Voltaren Arthritis Pain) Allergies Allergy/AdvReac Type Severity Reaction Status Date / Time Sulfa (Sulfonamide Allergy Mild Unknown Verified 09/18/23 09:56 Antibiotics) Alpha-Gal Allergy ADR-Gastrointestinal Verified 09/18/23 09:56 (Pmbqyqpat-Rshzj-3,3-Gala Upset [facility] Anesthesia Medical History 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,3-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 Carpal tunnel syndrome on right right forearm pain History of labyrinthitis Hypothyroidism No pertinent past medical history neghx: htn,dm,dvt/pe PCP: Nancy Casey Tinnitus of both ears TMJ arthralgia Surgical History Hx of section Hx of cholecystectomy Family History Mother Diabetes type 1 -- dx at age 13 Stroke Grandfather Hypertension maternal Denies family history of Colon cancer Ovarian cancer Heart disease Hyperlipidemia Breast cancer Uterine cancer Thyroid disease Social History Smoking and tobacco/nicotine status: former use of tobacco/nicotine Alcohol intake: never Data Anesthesia 09/18/23 10:35 09/18/23 10:35 Short CBC 09/18/23 Range/Units 10:35 WBC 5.04 (3.29-11.43) 10^3/uL Hgb 14.50 (11.27-16.99) g/dL Hct 43.1 (36-47) % MCV 90.9 (85-98) fl Plt Count 158 (157-399) 10^3/cmm Neut % (Auto) 57.9 % Neut # (Auto) 2.92 (1.8-7.7) 10^3/uL BMP 09/18/23 10:35 Sodium 141 Potassium 4.4 Chloride 103 Carbon Dioxide 25 BUN 9 Creatinine 0.7 Glucose 174 H Calcium 9.6 Liver Function 09/18/23 Range/Units 10:35 Total Bilirubin 1.7 H (0.15-1.2) mg/dL AST 16 (0-32) U/L ALT 29 (0-33) U/L Alkaline Phosphatase 111 H (35-105) U/L Albumin 4.2 (3.5-5.2) g/dL Urine 09/18/23 Range/Units 10:16 Urine Color Yellow (Yellow) Urine Appearance Clear (CLEAR) Urine pH 6 (5-7) Ur Specific [place] 1.015 (1.005-1.030) Urine Protein Neg (Negative) Urine Glucose (UA) Norm (Normal) Urine Ketones Negative (Negative) Urine Nitrate Negative (Negative) Urine Bilirubin Neg (Negative) Ur Leukocyte Esterase Negative (Negative) Cardiac Studies: No Data to Display
[2023-09-26] VITALS (23 sets, daily range): BP systolic 101–157; BP diastolic 71–96; PULSE 67–112; RESP 12–19; TEMP 36.1–37.2; O2SAT 88–98; BMI 52.8
[2023-09-26] MEDS: scopolamine 1.5 Patch 1 PATCH TRANSDERMA (08:10)
[2023-09-26] MEDS: sodium chloride 0.9% 500 ML IV (08:10)
[2023-09-26] MEDS: sodium chloride 0.9% 1,000 ML 30 ML IV (08:50)
[2023-09-26 09:02] LABS: OR HCG Qualitative Urine Negative (Negative)
--- NOTE | 2023-09-26 09:13 | W.PM.OPSUD ---
Surgery/Procedure H&P Update DATE OF PROCEDURE: September 26, 2023 DATE H&P PERFORMED: 09/18/23 H&P UPDATE INFORMATION: I have reviewed H&P completed within last 30 days, I have examined patient prior to procedure and No changes to prior documentation PREOP DIAGNOSIS: chronic ppelvic pain, enlarged uterus. PLANNED PROCEDURE: Operation Date: 09/26/23 09:25 Proposed Procedures p Laparoscopic assisted vaginal hysterectomy, bilateral salpingo-oophorectomy 78509, R10.2, G89.29 , N85.2(Not Applicable) - Joey Forrester MD
[2023-09-26] MEDS: ceFAZolin 3,000 MG in sodium chloride 0.9% (100 ml) 100 ML 200 MG IV (09:37)
--- NOTE | 2023-09-26 10:57 | PC.NURSE ---
Family updated 1050 09/26/2023 Marcus
--- NOTE | 2023-09-26 12:33 | PC.NURSE ---
family updated 1233 09/26/2023 Marcus
[2023-09-26] MEDS: lidocaine-epi 2% 20 mL INJ INJECTION (13:14)
--- NOTE | 2023-09-26 13:19 | PM.OP ---
Operative Report Date of procedure: September 26, 2023 Pre-op diagnosis: Chronic pelvic pain Post-op diagnosis: Same. Multiple pelvic adhesions Post-op findings: Pelvic adhesions Procedure done: Total abdominal hysterectomy with bilateral salpingo-oophorectomy Specimens removed/disposition: Uterus Left the right fallopian tube and ovaries Surgeon: Joey Forrester MD Estimated blood loss (mL): 500 IV fluids (mL): 1,300 Urine output (mL): 500 Complications: Multiple pelvic adhesions Procedure: After informed consent, the patient was taken to the operating room where general anesthesia was administered. Pre-Procedure Time-Out verifying the correct patient identity, correct procedure verified with consent, correct site and side, correct patient position, availability of correct implants and any special equipment or requirements was performed and acknowledge by the OR team. She was placed in the dorsal lithotomy position and prepped and draped in sterile fashion. The patient was examined under anesthesia and found to have a normal uterus with normal adnexa. A Hernandez catheter was placed in the bladder. A weighted speculum was placed in the vagina, and the anterior lip of cervix was grasped with the single toothed tenaculum. A uterine manipulator was advanced into the endocervical. Tenaculum was removed after uterine manipulator was secured. The speculum was removed from the vagina. The attention was brought to abdomen after changing gloves. The base of the umbilicus was grasped with an Allis clamp and with 2 towel clamp bilaterally tenting up the umbilicus an intraumbilical incision was made with a scalpel. While tenting up on the abdomen, a Verres needle with sleeve was admitted into the intra-abdominal cavity. A saline drop test was performed and noted to be within normal limits. Pneumoperitoneum was attained with 4 liters of carbon dioxide. The Verres needle was removed. Then a 5 mm Optiview trocar and cannula were inserted under direct visualization without complications. Trocars were removed and the laparoscope was inserted and connected to the video camera light source. A 5 mm trocar and cannula were placed in the right lower quadrant under direct visualization. Upon abdominal pelvic survey multiple adhesions were noted and the decision was made to proceed with an open total abdominal hysterectomy. Subsequently, a Pfannenstiel incision was made and the incision was taken down to the fascia. The fascia was opened up sharply. The fascia was extended to the length of the incision using the Batres scissors. At this time, the rectus muscles were dissected from the fascia superiorly and inferiorly to the symphysis pubis. The midline rectus muscles were opened sharply and extended superiorly and inferiorly. The peritoneum was visualized, grasped, opened sharply, and extended superiorly and inferiorly towards the bladder. The abdominal contents were packed superiorly away from the operative site using the lap packs. At this time, the pelvic organs were noted. The inferior and superior blades were placed in place on the Boo self-retaining retractor. Bowel was packed away from the operative site. The fundus of the uterus was then grasped with a triple-tooth tenaculum and retracted out of the pelvic cavity into the abdominal site. At this point, Roseanne clamps were placed in both right and left adnexal regions. Subsequently, using the LigaSure cautery unit, the round ligaments were grasped, cauterized, and dissected. The bladder flap was then formed and the bladder flap was pushed away down anteriorly over the lower uterine segment, pushed away from the operative site on both the right and left sides. Subsequently, the posterior leaf of the broad ligament was opened sharply and the LigaSure instrument was then placed below the level of the ovary in both the right and left side, care being taken not to damage bowel or uterus and the infundibulopelvic ligament was then grasped, cauterized, and again dissected. Further dissection of the broad ligament was carried down posteriorly towards the uterine vessels. The bladder was pushed inferiorly down towards the vagina. Subsequently, the uterine vessels were then grasped again with the LigaSure machine, cauterized, and dissected. The cardinal ligaments were further grasped, dissected, and suture ligated, again with the LigaSure machine. At that point, the LigaSure machine instrument was stopped and straight Zeppelin clamps were used on the cardinal ligaments down towards the uterosacral ligaments. The cardinal ligaments were grasped, dissected with a scalpel and then ligated with transfixion sutures with #1 Vicryl suture down to the uterosacral ligaments. The uterosacral ligaments were grasped, dissected, and suture ligated again with #1 Vicryl suture and transfixion sutures. At that time, the bladder had been pushed over the vagina and at this time right-angle Zeppelin clamps were placed on the vagina at the level of the cervix, and using the Owen scissors, the cervix was dissected away from the vagina. At this time, the vaginal cuff was then closed using interrupted sutures of #1 Vicryl suture from the midline to each lateral corner. After the good hemostasis had been achieved in the vaginal cuff, both the right and left adnexa was visualized and no more bleeding was noted. The cuff was intact with no bleeding noted. The bladder was visualized and no bleeding was noted. Surgicell was then placed over the vaginal cuff. Bluedigo was given IV. The Boo self-retaining retractor was removed as well as the anterior and inferior blades. The lap packs were removed, and at this time, general closure of the abdomen was carried out. The peritoneum was closed with a 2-0 Vicryl suture and continuous running suture. The fascia was closed using a #1 Vicryl suture from each corner to the midline. Subcutaneous tissue was cauterized. No bleeding was noted. The subcutaneous tissue was then reapproximated using plain sutures and interrupted sutures, and the skin was closed using Insorb absorbable subcuticular trent. The patient tolerated the procedure well and was transferred to the recovery room in excellent condition. The patient returned to the floor for recovery.
--- NOTE | 2023-09-26 14:03 | PC.NURSE ---
Oral airway removed post arrival. Oxygen applied due to de-saturation in upper 80s when sleeping. Mid 90s when awake
--- NOTE | 2023-09-26 14:40 | PC.NURSE ---
30-50cc blood noted on pad when transferred to bed. C/O some dizziness upon movement. Receiving nurse aware.
[2023-09-26] MEDS: dextrose 5%-lactated ringers 1,000 ML 125 ML IV (15:13)
[2023-09-26] MEDS: ketorolac 30 mg/mL INJ IVP ×2 (15:13→20:57)
--- NOTE | 2023-09-26 15:32 | ANE.PACU2 ---
Inpatient post-anesthesia follow up: Airway intact: Yes Vital signs: Temperature 98.1 F Pulse Rate 93 Respiratory Rate 19 Blood Pressure 123/83 Pulse Oximetry 96 Oxygen Delivery Me thod Nasal Cannula Oxygen Flow Rate 3 Fraction of Inspir ed Oxygen Hydration adequate: Yes Nausea and vomiting: No Pain level: 1 Mental status: Baseline
[2023-09-26] MEDS: HYDROcodone-acetaminophen 5-325 mg Tablet PO (16:47)
--- NOTE | 2023-09-26 16:52 | PC.NURSE ---
o2 sat running at 86-88% o2 turned up to 4l.
[2023-09-26] MEDS: ondansetron 2 mg/ML SDV 2 mL 4 MG IVP (18:28)
[2023-09-26] MEDS: acetaminophen 325 mg Tablet 650 MG PO (22:59)
[2023-09-27] MEDS: ondansetron 2 mg/ML SDV 2 mL 4 MG IVP (00:46)
[2023-09-27] MEDS: ketorolac 30 mg/mL INJ IVP (03:26)
[2023-09-27 05:51] VITALS: BP 119/82; PULSE 92; RESP 16; TEMP 36.7; O2SAT 94
[2023-09-27 05:51] LABS: Hematocrit 33.1 % (36-47); Mean Corpuscular HGB Conc 33.5 g/dL (30-55); Mean Corpuscular Hemoglobin 31.4 pg (27-33); Mean Corpuscular Volume 93.5 fl (85-98); Platelet Count 125 10^3/cmm (157-399); Red Blood Count 3.54 10^6/uL (3.85-5.65); Red Cell Distribution Width 12.8 % (12.1-15.1); White Blood Count 11.34 10^3/uL (3.29-11.43)
--- NOTE | 2023-09-27 09:10 | PM.PN ---
Subjective Subjective: Mrs. Mclain 48-year-old female is status post total abdominal hysterectomy postoperative day 1. Refers feeling better, last night she was nauseous and had vomiting episode. Vitals/I&O/Wt Last Vital Signs Temp 98.1 F 09/27/23 05:51 Pulse 92 09/27/23 05:51 Resp 16 09/27/23 05:51 BP 119/82 09/27/23 05:51 Pulse Ox 94 09/27/23 05:51 O2 Del Method Room Air 09/27/23 05:51 O2 Flow Rate 4 09/26/23 22:40 09/26/23 09/27/23 09/27/23 22:59 06:59 14:59 Intake Total 400 / 3350 1000 / 4350 Output Total 600 / 2200 400 / 2600 Balance -200 / 1150 600 / 1750 Weight last 48 hrs Weight 131.088 kg Weight 131.088 kg Physical Exam Narrative: GA: Alert and oriented ?3. HEENT: WNL. Heart: Regular rate and rhythm. Lungs: Clear to auscultation bilaterally. Abdomen: Bowel sounds present, nontender, minimal tenderness, incision clean and dry, no redness, pain or edema. SURGERY MANAGER: spotting bleeding. Extremities: No edema, no cyanosis, no calves pain. Urinary Catheter Management: Hernandez: Cath Placed During This Visit: yes, but has since been removed by the nurse Reason for Continuing Indwelling Catheter: Decision to DC Catheter Urinary Catheter Date of Insertion: 09/26/23 Urinary Catheter Time of Insertion: 10:20 Date Urinary Catheter Removed: 09/27/23 Time Urinary Catheter Discontinued: 05:47 Data 09/27/23 05:35 09/18/23 10:35 A&P Assessment and plan (1) Status post abdominal hysterectomy and salpingo-oophorectomy: Mrs. Mclain 48-year-old female is status post total abdominal hysterectomy postoperative day 1. Initially she was scheduled for laparoscopic-assisted vaginal hysterectomy due to previous surgical history. Upon entry multiple dense adhesions were noted in the pelvis and the decision was made to proceed with an abdominal hysterectomy. She is afebrile and hemodynamically stable postoperative day 1. Adequate urine output. However O2 sats have been low and with O2 cannula has been at 94. This may be due to obesity and sleep apnea. She refers she has not yet been diagnosed with sleep apnea. She had a nausea and vomiting episode last night, but tolerating liquids this morning. She refers she had a small bowel movement. She was advised to increase ambulation. Plan Continue postop observation. Encourage ambulation Attestations Medical Necessity Statement*: In my professional opinion per admitting diagnosis Coding Level of Care Code Acute Code for Chg Fwd Diagnoses Status post abdominal hysterectomy and salpingo-oophorectomy
[2023-09-27 10:10] VITALS: BP 129/84; PULSE 93; RESP 17; TEMP 36.8; O2SAT 96
[2023-09-27] MEDS: ibuprofen 800 mg tablet PO ×2 (10:10→16:06)
[2023-09-27] MEDS: docusate sodium 100 mg Capsule PO ×2 (10:10→20:33)
[2023-09-27] MEDS: aspirin 81 mg Chew Tablet PO (10:10)
[2023-09-27] MEDS: levothyroxine 25 mcg Tablet PO (10:10)
[2023-09-27] MEDS: HYDROcodone-acetaminophen 5-325 mg Tablet PO ×2 (12:39→20:33)
[2023-09-27 16:06] VITALS: BP 129/82; PULSE 90; RESP 17; TEMP 36.6; O2SAT 96
[2023-09-27 22:30] VITALS: BP 103/60; PULSE 88; RESP 16; TEMP 36.7; O2SAT 96
[2023-09-28] MEDS: ibuprofen 800 mg tablet PO ×2 (01:49→11:17)
[2023-09-28 04:36] VITALS: BP 105/79; PULSE 82; RESP 16; TEMP 36.8; O2SAT 96
[2023-09-28] MEDS: HYDROcodone-acetaminophen 5-325 mg Tablet PO ×2 (05:53→11:16)
[2023-09-28 08:56] LABS: Basophils % 0.3 %; Eosinophils % 0.3 %; Hematocrit 32.6 % (36-47); Lymphocytes # 2.6 10^3/uL (0.8-4.8); Lymphocytes % 34.4 %; Mean Corpuscular HGB Conc 32.8 g/dL (30-55); Mean Corpuscular Hemoglobin 31.7 pg (27-33); Mean Corpuscular Volume 96.4 fl (85-98); Mean Platelet Volume 9.4 fL (7.4-10.4); Monocytes # 0.5 10^3/uL (0.2-0.9); Monocytes % 5.9 %; Neutrophils # 4.45 10^3/uL (1.8-7.7); Neutrophils % 58.7 %; Nucleated Red Blood Cells % 0 %; Platelet Count 104 10^3/cmm (157-399); Red Blood Count 3.38 10^6/uL (3.85-5.65); Red Cell Distribution Width 13.2 % (12.1-15.1); White Blood Count 7.58 10^3/uL (3.29-11.43)
[2023-09-28 09:03] VITALS: O2SAT 97
[2023-09-28] MEDS: aspirin 81 mg Chew Tablet PO (11:17)
[2023-09-28] MEDS: levothyroxine 25 mcg Tablet PO (11:17)
[2023-09-28] MEDS: docusate sodium 100 mg Capsule PO (11:18)
[2023-09-28 13:55] VITALS: BP 119/76; PULSE 76; RESP 18; TEMP 36.7
--- NOTE | 2023-09-28 14:10 | P.DS_ITS ---
Discharge Providers WHITTLING ROOM OPERATOR Date of Admission: 09/26/23 14:49 Date of Discharge: 09/28/23 Attending Provider at Admission: Joey Forrester MD Attending Provider at Discharge: Joey Forrester MD Primary WHITTLING ROOM OPERATOR: Joey Forrester MD Primary Care Provider: Annie Casey Diagnoses at Discharge Discharge Diagnosis (1) Status post abdominal hysterectomy and salpingo-oophorectomy: Status: Acute Hospital Course Hospital Course Mrs. Mclain 48-year-old female with a history of abnormal uterine bleeding and chronic pelvic pain, admitted for planned laparoscopic assisted vaginal hysterectomy which was converted to a total abdominal hysterectomy due to adhesions. The total abdominal hysterectomy was performed without complication. Postop observation has been uneventful. Respiratory evaluation done due to low sats on the first postop day. She is ambulating without difficulty. Tolerating diet well. Had a bowel movement. She is afebrile hemodynamically stable postoperative day 2. She was counseled regarding pelvic rest for 6 weeks (no sex, no tampons, no vaginal douches). Return to the emergency room if any fever, increased bleeding or pain. Physical Exam Narrative: GA: Alert and oriented ?3. HEENT: WNL. Heart: Regular rate and rhythm. Lungs: Clear to auscultation bilaterally. Abdomen: Bowel sounds present, nontender, minimal tenderness, incision clean and dry, no redness, pain or edema. ROAD SUPERVISOR: Spotting bleeding. Extremities: No edema, no cyanosis, no calves pain. Urinary Catheter Management: Hernandez: Cath Placed During This Visit: yes, but has since been removed by the nurse Reason for Continuing Indwelling Catheter: Decision to DC Catheter Urinary Catheter Date of Insertion: 09/26/23 Urinary Catheter Time of Insertion: 10:20 Date Urinary Catheter Removed: 09/27/23 Time Urinary Catheter Discontinued: 05:47 History History History 5 Term 4 0 Miscarriages/Ectopic 1 Living Children 4 Discharge Data Studies Completed and Pending Pending at discharge Category Date Time Status Pathology: Surgical [PTH] Routine Pth 09/26/23 13:08 Received Laboratory Results WBC 7.58 10^3/uL (3.29-11.43) 09/28/23 08:40 RBC 3.38 10^6/uL (3.85-5.65) L 09/28/23 08:40 Hgb 10.70 g/dL (11.27-16.99) L 09/28/23 08:40 Hct 32.6 % (36-47) L 09/28/23 08:40 MCV 96.4 fl (85-98) 09/28/23 08:40 MCH 31.7 pg (27-33) 09/28/23 08:40 MCHC 32.8 g/dL (30-55) 09/28/23 08:40 RDW 13.2 % (12.1-15.1) 09/28/23 08:40 Plt Count 104 10^3/cmm (157-399) L 09/28/23 08:40 MPV 9.4 fL (7.4-10.4) 09/28/23 08:40 Neut % (Auto) 58.7 % 09/28/23 08:40 Lymph % (Auto) 34.4 % 09/28/23 08:40 [place] % (Auto) 5.9 % 09/28/23 08:40 Eos % (Auto) 0.3 % 09/28/23 08:40 Baso % (Auto) 0.3 % 09/28/23 08:40 Neut # (Auto) 4.45 10^3/uL (1.8-7.7) 09/28/23 08:40 Lymph # (Auto) 2.6 10^3/uL (0.8-4.8) 09/28/23 08:40 [place] # (Auto) 0.5 10^3/uL (0.2-0.9) 09/28/23 08:40 Eos # (Auto) 0.0 10^3/uL (0.0-0.8) 09/28/23 08:40 Baso # (Auto) 0.0 10^3/uL (0.0-0.1) 09/28/23 08:40 Nucleated RBC % (auto) 0 % 09/28/23 08:40 Nucleated RBCs # 0.0 /100WBC 09/28/23 08:40 Sodium 141 mmol/L (136-145) 09/18/23 10:35 Potassium 4.4 mmol/L (3.5-5.1) 09/18/23 10:35 Chloride 103 mmol/L (98-107) 09/18/23 10:35 Carbon Dioxide 25 mmol/L (22-29) 09/18/23 10:35 Anion Gap 17.4 (5-19) 09/18/23 10:35 BUN 9 mg/dL (6-20) 09/18/23 10:35 Creatinine 0.7 mg/dL (0.5-0.9) 09/18/23 10:35 GFR Calculation 88.9 mL/min (90-130) L 09/18/23 10:35 Glucose 174 mg/dL (65-115) H 09/18/23 10:35 Calculated Osmolality 295 mOsm/kg (285-295) 09/18/23 10:35 Calcium 9.6 mg/dL (8.5-10.5) 09/18/23 10:35 Total Bilirubin 1.7 mg/dL (0.15-1.2) H 09/18/23 10:35 AST 16 U/L (0-32) 09/18/23 10:35 ALT 29 U/L (0-33) 09/18/23 10:35 Alkaline Phosphatase 111 U/L (35-105) H 09/18/23 10:35 Total Protein 7.4 g/dL (6.6-8.7) 09/18/23 10:35 Albumin 4.2 g/dL (3.5-5.2) 09/18/23 10:35 Globulin 3.2 g/dL (1.3-4.6) 09/18/23 10:35 Urine Color Yellow (Yellow) 09/18/23 10:16 Urine Appearance Clear (CLEAR) 09/18/23 10:16 Urine pH 6 (5-7) 09/18/23 10:16 Ur Specific [place] 1.015 (1.005-1.030) 09/18/23 10:16 Urine Protein Neg (Negative) 09/18/23 10:16 Urine Glucose (UA) Norm (Normal) 09/18/23 10:16 Urine Ketones Negative (Negative) 09/18/23 10:16 Urine Blood Neg (Negative) 09/18/23 10:16 Urine Nitrate Negative (Negative) 09/18/23 10:16 Urine Bilirubin Neg (Negative) 09/18/23 10:16 Urine Urobilinogen Neg mg/dL (Negative) 09/18/23 10:16 Ur Leukocyte Esterase Negative (Negative) 09/18/23 10:16 Urine HCG, Qual Negative (Negative) 09/26/23 09:01 Blood Type O Positive 09/26/23 08:06 Rho(D) Type Rh positive 09/26/23 08:06 Antibody Screen Negative 09/26/23 08:06 Vitals Last Vital Signs Temp 98.0 F 09/28/23 13:55 Pulse 76 09/28/23 13:55 Resp 18 09/28/23 13:55 BP 119/76 09/28/23 13:55 Pulse Ox 97 09/28/23 09:03 O2 Del Method Room Air 09/28/23 09:03 O2 Flow Rate 4 09/28/23 04:36 Results Labs OB ([facility]): Blood Type O Positive 09/26/23 Antibody Screen Negative 09/26/23 Hct 32.6 % (36-47) L 09/28/23 Hgb 10.70 g/dL (11.27-16.99) L 09/28/23 Rho(D) Type Rh positive 09/26/23 Plt Count 104 10^3/cmm (157-399) L 09/28/23 HCG, Qual Negative (Negative) 01/14/23 Pap Smear Interpret See note 03/06/23 Discharge Plan Discharge Patient Disposition: Home Condition: Stable Prescriptions: New hydrocodone-acetaminophen 5-325 mg tablet 1 tab PO Q4H PRN (Reason: pain) Qty: 30 0RF acetaminophen 325 mg capsule 325 mg PO Q4H PRN (Reason: fever or pain) Qty: 60 0RF ibuprofen 800 mg tablet 800 mg PO TID PRN (Reason: pain) Qty: 60 0RF Continued albuterol sulfate 90 mcg/actuation HFA aerosol inhaler 2 puff inhalation Q6H PRN (Reason: Respiratory Distress) epinephrine [EpiPen 2-Thony] 0.3 mg/0.3 mL auto-injector 0.3 mg IM Q4H PRN (Reason: Anaphylaxis) Rx Instructions: pt hasn't used levothyroxine 25 mcg capsule 25 mcg PO DAILY fluticasone propionate [Allergy Relief (fluticasone)] 50 mcg/actuation spray,suspension 1 spray intranasal DAILY PRN (Reason: allergies) Rx Instructions: administer into each nostril albuterol sulfate 2.5 mg /3 mL (0.083 %) solution for nebulization 2.5 mg inhalation Q4H PRN (Reason: shortness of breath or wheezing) Qty: 75 0 RF diclofenac sodium [Voltaren Arthritis Pain] 1 % gel 4 g topical QID Qty: 100 1RF Rx Instructions: apply to single knee, ankle, foot; for foot includes sole/toes/top of foot cetirizine [Zyrtec] 10 mg tablet 10 mg PO DAILY PRN (Reason: allergies) meclizine 25 mg tablet 25 mg PO QID PRN (Reason: dizziness) Qty: 20 0RF ibuprofen 800 mg tablet 800 mg PO TID PRN (Reason: pain) Qty: 60 0RF acetaminophen 325 mg capsule 325 mg PO Q4H PRN (Reason: fever or pain) Qty: 60 0RF Baby Aspirin 81 mg Tablet,Chewable 81 mg PO DAILY Discharge Orders: Discharge Order (Routine); Ordered 09/28/23 Ordered By: Joey Forrester Referrals: Joey Forrester MD [Physician] - 10/10/23 8:15 am Discharge Diet: Usual diet Discharge Activity: Limit activity as instructed Patient Instructions: Salpingectomy (DC), Hysterectomy (DC), Opioid Safety Activity Restrictions/Additional Instructions: 1. Please call [facility] on next working day to make your post-operative appointment in 2 weeks. 2. Please stay home until you come back to the clinic on first post- hospatilization check up. 3. Please follow instructions on your medications CAREFULLY. 4. If you have abdominal incision, do not cover it unless dressing is necessary because of drainage. OK to shower, but avoid bath. Leave steri-strips until they fall off. If they are still on one week after surgery, you may remove them. 5. If you had vaginal surgery or vaginal repair, Dr. Forrester may instruct you to take SITZ bath. 6. Yellow, blood tinged odorous vaginal discharge is usually normal after hysterectomy or vaginal surgeries. 7. No SEXUAL INTERCOURSE, tampons, or douches until you are completely released from the post-operative care. 8. Avoid constipation by eating right and maybe using some Metamucil or Milk of Magnesia. 9. All prescription refills are given during the working hours. Please do no wait till it runs out. Call the clinic at [phone] before your medication runs out. The clinic will get in touch with your doctor to prescribe medications if necessary. 10. Please remain within 40 mile radius from our hospital because emergencies do happen now and then during the post-operative period. 11. If you have stairs at home, take one step at a time slowly and minimize the number of trips. It helps to stay in one floor for the next few days. No lifting except what you can lift by one hand until you are released from the post-operative care. 12. Driving is discouraged until you are well healed. It may be 3-4 weeks before you feel strong enough to drive. You should be able to turn and look through the rear window without pain and you should be able to push the brake pedal very hard without pain before you drive. No fast rules, but SAFETY should be your primary concern. DO NOT drive if you are on sedating medications such as narcotics. 13. Call the clinic (during working hours) to make urgent appointment or go to the Emergency room, if any of the following occurs: i. Vaginal bleeding becomes heavy, more than a period. ii. Incision becomes red and sore, or drains pus. iii. Your TEMPERATURE is over 100.4F or you have chill. iv. IV site becomes red and swollen (a little ``knot?? is usually OK) v. Persistent nausea and vomiting vi. Persistent constipation or diarrhea vii. Rash or allergic reaction to medications. Discharge Attestations WHITTLING ROOM OPERATOR Time Spent in Discharge Care*: greater than 30 min Coding Level of Care Code Acute Code for Chg Fwd Diagnoses Status post abdominal hysterectomy and salpingo-oophorectomy
[2023-09-28 15:12] VITALS: BP 119/76; PULSE 76; RESP 18; TEMP 36.7
== END 2023-09-28 15:10 | disposition home or self-care (01) | DRG 742 ==
LOC: OBGYN 09-27 09:17
PROVIDERS: Anesthesiology; Admitting Provider Obstetrics & Gynecology; PCP Nurse Practitioner Family; Visit Provider Obstetrics & Gynecology
PROC: 0UT9FZZ Resection of Uterus, Via Natural or Artificial Opening With Percutaneous Endoscopic Assistance (ICD-10-PCS; principal; 2023-09-26 09:05)
DX: N93.9 Abnormal uterine and vaginal bleeding, unspecified (principal); Z68.43 Body mass index [BMI] 50.0-59.9, adult; N73.6 Female pelvic peritoneal adhesions (postinfective); G89.29 Other chronic pain; R10.2 Pelvic and perineal pain; Z79.82 Long term (current) use of aspirin; E66.01 Morbid (severe) obesity due to excess calories; J45.909 Unspecified asthma, uncomplicated; E03.9 Hypothyroidism, unspecified; Z87.891 Personal history of nicotine dependence
CPT/HCPCS: 36415; 80053; 81003; 81025; 84703; 85025; 85027; 86850; 86900; 88307; 94664; A4216; J0690; J1100; J1170; J1885; J2250; J2405; J2704; J3010; J3490; J7030; J7040; J7121

== ENCOUNTER 2023-10-05 22:08 | Observation (INO) | payer MEDICAID, SELFPAY ==
[2023-10-05 22:17] VITALS: BP 137/71; PULSE 107; RESP 20; TEMP 37.6; O2SAT 95; BMI 52.7
--- NOTE | 2023-10-05 22:17 | CTR_ITS ---
PROCEDURE INFORMATION: Exam: CT Abdomen And Pelvis With Contrast Exam date and time: 10/05/2023 11:33 PM Age: 48 years old Clinical indication: Fever; Abdominal pain; Generalized; Prior surgery; Surgery date: 3-7 days post-operative; Surgery type: Hysterectomy; Additional info: S/P hysterectomy, fever TECHNIQUE: Imaging protocol: Computed tomography of the abdomen and pelvis with contrast. Radiation optimization: All CT scans at this facility use at least one of these dose optimization techniques: automated exposure control; mA and/or kV adjustment per patient size (includes targeted exams where dose is matched to clinical indication); or iterative reconstruction. Contrast material: OMNI 350; Contrast volume: 100 ml; Contrast route: INTRAVENOUS (IV); REPORTING DATA: Count of CT and Cardiac NM exams in prior 12 months: This patient has received [address] and 0 known cardiac nuclear medicine studies in the 12 months prior to the current study. COMPARISON: CT abdomen pelvis w con* [id number] 01/14/2023 2:07 PM RADIATION DOSE METRICS: Total DLP (mGy-cm): 1333.78 FINDINGS: Liver: Unremarkable. Gallbladder and bile ducts: Cholecystectomy. Pancreas: Unremarkable. No duct dilation. Spleen: Unremarkable. Adrenal glands: Unremarkable. Kidneys and ureters: Left renal cyst. Otherwise unremarkable. Stomach and bowel: No bowel obstruction. Appendix: No evidence of appendicitis. Intraperitoneal space: Trace fluid/stranding the pelvis, presumably postoperative. No free air. No significant fluid collection. Vasculature: No abdominal aortic aneurysm. Lymph nodes: No enlarged lymph nodes. Urinary bladder: Unremarkable as visualized. Reproductive: Hysterectomy. Bones/joints: No acute fracture. No aggressive osseous lesions. Soft tissues: Fluid collection within the inferior abdominal wall deep subcutaneous tissues measuring approximately 12.5 x 2.1 x 4.0 cm, series 3, image 80. Focal thickening and enhancement of the superficial abdominal wall fascia subjacent to the collection. Low-attenuation within the anterior aspect of the bilateral rectus musculature. Diffuse surrounding abdominal wall subcutaneous stranding. CT/CT abdomen pelvis w con* [id number] IMPRESSION: Fluid collection within the inferior abdominal wall deep subcutaneous tissues. Thickening and enhancement of the subjacent superficial abdominal wall fascia and low-attenuation within the anterior aspect of the bilateral rectus musculature, suggesting myositis.
--- NOTE | 2023-10-05 22:19 | W.ED.ABDPA2 ---
HPI - Abdominal Pain General: Chief Complaint: Fever Stated Complaint: fever post hysterectomy Time Seen by Provider: 10/05/23 22:17 History of Present Illness: 48-year-old female comes in today with complaints of fever status post abdominal hysterectomy. On 26 September patient had a full hysterectomy with salpingectomy. Patient has been doing well up until today when she started running a fever that got up to 101. Patient reports no nausea or vomiting. Patient reports normal bowel movements. Patient has had some increased pain and discomfort today. Monday patient had bent over to pick something up off the floor and had some small amount of vaginal bleeding. Patient reports the bleeding was small and resolved on its own. Patient appears nontoxic. Patient appears in moderate pain. 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-1,3-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 Carpal tunnel syndrome on right right forearm pain History of labyrinthitis Hypothyroidism No pertinent past medical history neghx: htn,dm,dvt/pe PCP: Nancy Casey Tinnitus of both ears TMJ arthralgia Surgical History Hx of section Hx of cholecystectomy Family History Mother Diabetes type 1 -- dx at age 13 Stroke Grandfather Hypertension maternal Denies family history of Colon cancer Ovarian cancer Heart disease Hyperlipidemia Breast cancer Uterine cancer Thyroid disease Social History Smoking and tobacco/nicotine status: former use of tobacco/nicotine Alcohol intake: never Physical Exam Const: COMMON NORMALS: alert HENMT: COMMON NORMALS: normocephalic HEAD & SCALP: normocephalic Neck/C-Spine: COMMON NORMALS: full ROM and no meningeal signs Resp: COMMON NORMALS: normal respiratory effort and clear to auscultation bilaterally AUSCULTATION: clear to auscultation bilaterally Cardio: COMMON NORMALS: regular rate and regular rhythm RATE: regular rate RHYTHM: regular rhythm GI: AUSCULTATION: Yes normoactive bowel sounds PALPATION: Yes Tenderness to palpation present (GI) (Mid abdomen) : COMMON NORMALS: Yes no CVA tenderness BLADDER/KIDNEY EXAM: Yes no CVA tenderness OTHER: Healing surgical incision without redness or drainage. Back/Pelvis: COMMON NORMALS: no CVA tenderness and thoracic and lumbar spine normal to inspection Extremity: COMMON NORMALS: normal to inspection Neuro: SENSORIUM/ORIENTATION: Yes alert MENINGEAL SIGNS: Yes no meningeal signs Skin: COMMON NORMALS: turgor normal GENERAL SKIN EXAM: turgor normal Course Vital Signs: Vital signs: Vital Signs Temperature 99.7 F H 10/05/23 22:17 Pulse Rate 107 H 10/05/23 22:17 Respiratory Rate 20 H 10/05/23 22:17 Blood Pressure 137/71 10/05/23 22:17 Pulse Oximetry 95 10/05/23 22:17 Oxygen Delivery Me thod Room Air 10/05/23 22:17 MDM - Abdominal Pain Medical Decision Making 48-year-old female comes in today with complaints of fever and lower abdominal pain. On exam lungs are clear to auscultation. Abdomen soft nontender. Skin is warm and dry. Vital signs are normal except for some mild elevation temperature of 99.7, with reported fever of 101 at home. Pulse rate slightly elevated at 107. Differential diagnosis includes but not limited to surgical wound infection, pneumonia, UTI. CBC had a white count of 7000, CMP noted some decreased sodium at 134, lactic was 3.0, urinalysis was clean. CT of the abdomen pelvis noted a large fluid collection in the deep subcutaneous tissue and myositis. Reviewed with Dr. Carrasquillo who recommended we consult with Dr. Horta who is on-call for OB?CNC MILLING MACHINE OPERATOR whom did the hysterectomy. Dr. Horta agreed to admit patient for concerns of possible wound infection for IV antibiotics and further interventions as needed. Lab Data 10/05/23 22:27 10/05/23 22:27 Labs/Radiology: Radiology Impressions Abdomen/Pelvis CT 10/05/23 22:17 IMPRESSION: Fluid collection within the inferior abdominal wall deep subcutaneous tissues. Thickening and enhancement of the subjacent superficial abdominal wall fascia and low-attenuation within the anterior aspect of the bilateral rectus musculature, suggesting myositis. Chest X-Ray 10/05/23 22: IMPRESSION: No acute findings. Laboratory Results WBC 7.90 10^3/uL (3.29-11.43) 10/05/23: RBC 3.60 10^6/uL (3.85-5.65) L 10/05/23: Hgb 11.30 g/dL (11.27-16.99) 10/05/23: Hct 33.5 % (36-47) L 10/05/23: MCV 93.1 fl (85-98) 10/05/23: MCH 31.4 pg (27-33) 10/05/23: MCHC 33.7 g/dL (30-55) 10/05/23: RDW 14.2 % (12.1-15.1) 10/05/23: Plt Count 128 10^3/cmm (157-399) L 10/05/23: MPV 9.2 fL (7.4-10.4) 10/05/23: Neut % (Auto) 80.4 % 10/05/23: Lymph % (Auto) 14.3 % 10/05/23: [place] % (Auto) 4.1 % 10/05/23: Eos % (Auto) 0.5 % 10/05/23: Baso % (Auto) 0.3 % 10/05/23 Neut # (Auto) 6.36 10^3/uL (1.8-7.7) 10/05/23: Lymph # (Auto) 1.1 10^3/uL (0.8-4.8) 10/05/23: [place] # (Auto) 0.3 10^3/uL (0.2-0.9) 10/05/23: Eos # (Auto) 0.0 10^3/uL (0.0-0.8) 10/05/23: Baso # (Auto) 0.0 10^3/uL (0.0-0.1) 10/05/23 22:27 Nucleated RBC % (auto) 0 % 10/05/23 22: Nucleated RBCs # 0.0 /100WBC 10/05/23 22:27 Sodium 134 mmol/L (136-145) L 10/05/23 22:27 Potassium 4.2 mmol/L (3.5-5.1) 10/05/23 22:27 Chloride 100 mmol/L (98-107) 10/05/23 22:27 Carbon Dioxide 21 mmol/L (22-29) L 10/05/23 22:27 Anion Gap 17.2 (5-19) 10/05/23 22:27 BUN 10 mg/dL (6-20) 10/05/23 22:27 Creatinine 0.7 mg/dL (0.5-0.9) 10/05/23 22:27 GFR Calculation 88.9 mL/min (90-130) L 10/05/23 22:27 Glucose 294 mg/dL (65-115) H 10/05/23 22:27 Calculated Osmolality 288 mOsm/kg (285-295) 10/05/23 22:27 Lactic Acid 3.0 mmol/L (0.5-2.2) H 10/05/23 22:27 Calcium 9.1 mg/dL (8.5-10.5) 10/05/23 22:27 Total Bilirubin 1.2 mg/dL (0.15-1.2) 10/05/23 22:27 AST 11 U/L (0-32) 10/05/23 22:27 ALT 22 U/L (0-33) 10/05/23 22:27 Alkaline Phosphatase 92 U/L (35-105) 10/05/23 22:27 Total Protein 6.6 g/dL (6.6-8.7) 10/05/23 22:27 Albumin 3.8 g/dL (3.5-5.2) 10/05/23 22:27 Globulin 2.8 g/dL (1.3-4.6) 10/05/23 22:27 Urine Color Yellow (Yellow) 10/05/23 22:40 Urine Appearance Clear (CLEAR) 10/05/23 22:40 Urine pH 5 (5-7) 10/05/23 22:40 Ur Specific [place] 1.010 (1.005-1.030) 10/05/23 22:40 Urine Protein Neg (Negative) 10/05/23 22:40 Urine Glucose (UA) Norm (Normal) 10/05/23 22:40 Urine Ketones Negative (Negative) 10/05/23 22:40 Urine Blood Neg (Negative) 10/05/23 22:40 Urine Nitrate Negative (Negative) 10/05/23 22:40 Urine Bilirubin Neg (Negative) 10/05/23 22:40 Urine Urobilinogen Norm mg/dL (Negative) 10/05/23 22:40 Ur Leukocyte Esterase Negative (Negative) 10/05/23 22:40 All radiology interpretation(s) finalized by discharge Discharge Plan Discharge Patient Disposition: Admitted As Inpatient Clinical Impression: Postoperative infection, seroma Condition: Stable Coding Level of Care Code ED Animal Rehabilitator for Alena Torres
--- NOTE | 2023-10-05 22:31 | XRR_ITS ---
PROCEDURE INFORMATION: Exam: XR Chest Exam date and time: 10/05/2023 10:56 PM Age: 48 years old Clinical indication: Cough and fever; Patient HX: Post hyster; Additional info: Fever, cough TECHNIQUE: Imaging protocol: Radiologic exam of the chest. Views: 1 view. COMPARISON: CR XR chest 2V* [id number] 05/09/2023 12:43 PM FINDINGS: Lungs: No consolidation. Pleural spaces: No large pleural effusion. No pneumothorax. Heart/Mediastinum: Unremarkable cardiomediastinal silhouette. Bones/joints: No acute abnormality. XR/XR chest 1V portable [id number] IMPRESSION: No acute findings.
[2023-10-05 22:36] LABS: Basophils % 0.3 %; Eosinophils % 0.5 %; Hematocrit 33.5 % (36-47); Lymphocytes # 1.1 10^3/uL (0.8-4.8); Lymphocytes % 14.3 %; Mean Corpuscular HGB Conc 33.7 g/dL (30-55); Mean Corpuscular Hemoglobin 31.4 pg (27-33); Mean Corpuscular Volume 93.1 fl (85-98); Mean Platelet Volume 9.2 fL (7.4-10.4); Monocytes # 0.3 10^3/uL (0.2-0.9); Monocytes % 4.1 %; Neutrophils # 6.36 10^3/uL (1.8-7.7); Neutrophils % 80.4 %; Nucleated Red Blood Cells % 0 %; Platelet Count 128 10^3/cmm (157-399); Red Cell Distribution Width 14.2 % (12.1-15.1)
[2023-10-05 22:53] LABS: Alanine Aminotransferase 22 U/L (0-33); Albumin Level 3.8 g/dL (3.5-5.2); Alkaline Phosphatase 92 U/L (35-105); Anion Gap 17.2 (5-19); Aspartate Amino Transferase 11 U/L (0-32); Blood Urea Nitrogen 10 mg/dL (6-20); Calcium 9.1 mg/dL (8.5-10.5); Carbon Dioxide 21 mmol/L (22-29); Chloride 100 mmol/L (98-107); Globulin 2.8 g/dL (1.3-4.6); Glomerular Filtration Rate 88.9 mL/min (90-130); Glucose 294 mg/dL (65-115); Osmolality Calculated 288 mOsm/kg (285-295); Potassium 4.2 mmol/L (3.5-5.1); Sodium 134 mmol/L (136-145); Total Bilirubin 1.2 mg/dL (0.15-1.2); Total Protein 6.6 g/dL (6.6-8.7)
[2023-10-05 22:55] LABS: Add Urine Microscopic? NO; Charge for UA Resulting for Rev
[2023-10-05 23:00] LABS: Bilirubin Urine Neg (Negative); Blood Urine Neg (Negative); Glucose Urine UA Norm (Normal); Ketones Urine Negative (Negative); Leukocyte Esterase Urine Negative (Negative); Nitrate Urine Negative (Negative); Protein Urine Neg (Negative); Urine Appearance Clear (CLEAR); Urine Color Yellow (Yellow); Urobilinogen Urine Norm (Negative); pH Urine 5 (5-7)
[2023-10-05] MEDS: piperacillin-tazobactam 4.5 GM in sodium chloride 0.9% (plus) 50 ML IV (23:23)
[2023-10-05] MEDS: sodium chloride 0.9% 1,000 ML 999 ML IV (23:23)
[2023-10-05] MEDS: iohexol 350 mg/mL 500 mL Btl (per mL) IV (23:37)
[2023-10-06] VITALS (9 sets, daily range): BP systolic 114–164; BP diastolic 70–107; PULSE 78–95; RESP 16–18; TEMP 36.6–37.2; O2SAT 95–99; BMI 52.7
[2023-10-06 00:21] LABS: Reflex Lactate Order REFLEX LACTIC ORDERD
[2023-10-06] MEDS: cefTRIAXone 1,000 MG in sodium chloride 0.9% (plus) 50 ML 100 MG IV ×2 (00:35→14:22)
[2023-10-06 00:55] LABS: Lactic Acid level (Lactate) 2.3 mmol/L (0.5-2.2)
--- NOTE | 2023-10-06 00:58 | PC.NURSE ---
Report called to ERIN Vallejo in OB. all questions and concerns addressed at time of report.
--- NOTE | 2023-10-06 04:17 | PC.NURSE ---
This nurse assessed the patient on arrival it was noted that the incision site of her previous abdominal hysterectomy which took place last week was in a few areas. Doctor was notified.
[2023-10-06] MEDS: oxyCODONE-APAP 5-325 mg Tablet 1 TAB PO ×2 (04:55→13:55)
--- NOTE | 2023-10-06 07:50 | PM.OBGYHP ---
Providers/Chief Complaint Admitting Physician: Andrea Horta MD Primary FACULTY SUPPORT COORDINATOR: Joey Forrester MD Primary Care Provider: Annie Casey Chief Complaint: fever post hysterectomy HPI FACULTY SUPPORT COORDINATOR History of Present Illness Tenisha Mclain is a 48 year old female s/p GISSELL, BSO on September 26, 2023 presented to ER c/o fever to 101 at home mild abdominal pain no nausea, vomiting no bleeding, dysuria no pain or swelling in legs no chest pain, shortness of breath Medications/Allergies Home Medications Medication Instructions Recorded Confirmed Last Taken Type meclizine 25 mg tablet 25 mg PO QID PRN dizziness #20 tabs 06/20/22 09/18/23 04/25/23 Rx albuterol sulfate 90 mcg/actuation 2 puff inhalation Q6H PRN 01/30/23 09/18/23 09/22/23 History aerosol inhaler Respiratory Distress epinephrine 0.3 mg/0.3 mL 0.3 mg IM Q4H PRN Anaphylaxis 01/30/23 09/18/23 Unknown History injection, auto-injector (EpiPen 2-Thony) fluticasone propionate 50 1 spray intranasal DAILY PRN 03/06/23 09/18/23 07/27/23 History mcg/actuation nasal allergies spray,suspension (Allergy Relief (fluticasone)) levothyroxine 25 mcg capsule 25 mcg PO DAILY 03/06/23 09/18/23 09/24/23 History acetaminophen 325 mg capsule 325 mg PO Q4H PRN fever or pain 05/03/23 09/18/23 Unknown Rx #60 caps ibuprofen 800 mg tablet 800 mg PO TID PRN pain #60 tabs 05/03/23 09/18/23 09/24/23 Rx cetirizine 10 mg tablet (Zyrtec) 10 mg PO DAILY PRN allergies 07/10/23 09/18/23 08/26/23 History albuterol sulfate 2.5 mg/3 mL 2.5 mg (3 mL) inhalation Q4H PRN 08/22/23 09/18/23 09/22/23 Rx (0.083 %) solution for nebulization shortness of breath or wheezing #75 mL diclofenac sodium 1 % topical gel 4 g topical QID #100 grams 09/15/23 09/18/23 09/23/23 Rx (Voltaren Arthritis Pain) aspirin 81 mg chewable tablet 81 mg PO DAILY 09/26/23 09/26/23 09/25/23 History acetaminophen 325 mg capsule 325 mg PO Q4H PRN fever or pain 09/28/23 Unknown Rx #60 caps hydrocodone 5 mg-acetaminophen 325 1 tab PO Q4H PRN pain #30 tabs 09/28/23 Unknown Rx mg tablet ibuprofen 800 mg tablet 800 mg PO TID PRN pain #60 tabs 09/28/23 Unknown Rx Allergies Allergy/AdvReac Type Severity Reaction Status Date / Time Sulfa (Sulfonamide Allergy Mild Unknown Verified 09/18/23 09:56 Antibiotics) Alpha-Gal Allergy ADR-Gastrointestinal Verified 09/18/23 09:56 (Vmaqjtwis-Dasoq-7,3-Gala Upset PFSH FACULTY SUPPORT COORDINATOR PFSH: Medical History Allergic reaction to ijzwlhncd-avypo-4,3-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 Carpal tunnel syndrome on right right forearm pain History of labyrinthitis Hypothyroidism No pertinent past medical history neghx: htn,dm,dvt/pe PCP: Nancy Casey Tinnitus of both ears TMJ arthralgia Surgical History Hx of section Hx of cholecystectomy Family History Mother Diabetes type 1 -- dx at age 13 Stroke Grandfather Hypertension maternal Denies family history of Colon cancer Ovarian cancer Heart disease Hyperlipidemia Breast cancer Uterine cancer Thyroid disease Social History Smoking and tobacco/nicotine status: former use of tobacco/nicotine Alcohol intake: never History History History 5 Term 4 0 Miscarriages/Ectopic 1 Living Children 4 Vitals/I&O/Wt Last Vital Signs Temp 97.8 F 10/06/23 04:03 Pulse 81 10/06/23 04:03 Resp 16 10/06/23 05:52 BP 118/80 10/06/23 04:03 Pulse Ox 98 10/06/23 04:55 O2 Del Method Room Air 10/06/23 04:03 10/05/23 10/06/23 10/06/23 22:59 06:59 14:59 Intake Total 50 / 50 Balance 50 / 50 Weight last 48 hrs Weight 288 lb Weight 288 lb Weight 288 lb Physical Exam Narrative: Weight 288 lbs; 5?2?, BMI 52 Temp 99.7 Comfortable, awake, alert Lungs: clear Cor: RRR Abd: soft, nondistended, nontender Wound healing well, minimal exudate; no erythema, swelling Ext: normal Data 10/05/23 22:27 10/05/23 22:27 Micro: Microbiology 10/05/23 22:27 Blood Culture - Preliminary Blood SPECIMEN COLLECTED 10/05/23 22:27 Blood Culture - Preliminary Blood SPECIMEN COLLECTED Results Labs OB ([facility]): Blood Type O Positive 09/26/23 Antibody Screen Negative 09/26/23 Hct 33.5 % (36-47) L 10/05/23 Hgb 11.30 g/dL (11.27-16.99) 10/05/23 Rho(D) Type Rh positive 09/26/23 Plt Count 128 10^3/cmm (157-399) L 10/05/23 HCG, Qual Negative (Negative) 01/14/23 Pap Smear Interpret See note 03/06/[address] abdomen / pelvis: 12-13 cm fluid collection in inferior abdominal wall deep to the Subcutaneous tissues A&P Assessment and plan (1) Status post abdominal hysterectomy and salpingo-oophorectomy: s/p GISSELL, BSO on September 26, 2023 (2) Postoperative infection, seroma: 12-13 cm fluid collection deep to subcutaneous tissues in abdominal wall Possible seroma vs. deep surgical site infection vs. abscess Normal WBC and minimal fever do not suggest presence of an abscess Likely seroma Will admit for observation Will give dose of IV Abx Attestations Medical Necessity Statement*: patient s/p GISSELL, bso with febrile episode Coding Level of Care Code Acute Code for [facility] Fwd Diagnoses Status post abdominal hysterectomy and salpingo-oophorectomy Postoperative infection, seroma Time Spent (min) 60
[2023-10-06] MEDS: ibuprofen 800 mg tablet PO ×2 (09:58→21:00)
[2023-10-06] MEDS: lactated ringers 1,000 ML 125 ML IV (09:59)
[2023-10-06] MEDS: docusate sodium 100 mg Capsule PO ×2 (09:59→18:18)
--- NOTE | 2023-10-06 10:00 | PC.NURSE ---
pt was educated on wound healing and the benefits of lowering blood sugar to promote wound healing. pt states she does not want insulin. pt states she would like to try diet controlled before insulin.
[2023-10-06] MEDS: piperacillin-tazobactam 4.5 GM in sodium chloride 0.9% (plus) 50 ML IV ×2 (10:07→18:18)
[2023-10-06 10:43] LABS: Glucose Point of Care 221 mg/dL (70-110)
--- NOTE | 2023-10-06 16:59 | P.HP_ITS ---
Providers/Chief Complaint 2 Admitting Physician: Andrea Horta MD Primary STRUCTURAL STEEL WORKER HELPER: Joey Forrester MD Primary Care Provider: Annie Casey Chief Complaint: fever post hysterectomy HPI STRUCTURAL STEEL WORKER HELPER History of Present Illness Tenisha Mclain is a 48 year old female Review of Systems 2 General: Reports: 10 or more systems reviewed and unremarkable except in HPI and below Const: Reports: fever(s) Card: Denies: chest pain Resp: Denies: dyspnea GI: Reports: abdominal pain; Denies: nausea, vomiting, diarrhea or constipation : Denies: difficulty voiding Musc: Denies: back pain Medications/Allergies Home Medications Medication Instructions Recorded Confirmed Last Taken Type meclizine 25 mg tablet 25 mg PO QID PRN dizziness #20 tabs 06/20/22 09/18/23 04/25/23 Rx albuterol sulfate 90 mcg/actuation 2 puff inhalation Q6H PRN 01/30/23 09/18/23 09/22/23 History aerosol inhaler Respiratory Distress epinephrine 0.3 mg/0.3 mL 0.3 mg IM Q4H PRN Anaphylaxis 01/30/23 09/18/23 Unknown History injection, auto-injector (EpiPen 2-Thony) fluticasone propionate 50 1 spray intranasal DAILY PRN 03/06/23 09/18/23 07/27/23 History mcg/actuation nasal allergies spray,suspension (Allergy Relief (fluticasone)) levothyroxine 25 mcg capsule 25 mcg PO DAILY 03/06/23 09/18/23 09/24/23 History acetaminophen 325 mg capsule 325 mg PO Q4H PRN fever or pain 05/03/23 09/18/23 Unknown Rx #60 caps ibuprofen 800 mg tablet 800 mg PO TID PRN pain #60 tabs 05/03/23 09/18/23 09/24/23 Rx cetirizine 10 mg tablet (Zyrtec) 10 mg PO DAILY PRN allergies 07/10/23 09/18/23 08/26/23 History albuterol sulfate 2.5 mg/3 mL 2.5 mg (3 mL) inhalation Q4H PRN 08/22/23 09/18/23 09/22/23 Rx (0.083 %) solution for nebulization shortness of breath or wheezing #75 mL diclofenac sodium 1 % topical gel 4 g topical QID #100 grams 11/17/23 11/20/23 11/25/23 Rx (Voltaren Arthritis Pain) aspirin 81 mg chewable tablet 81 mg PO DAILY 09/26/23 09/26/23 09/25/23 History acetaminophen 325 mg capsule 325 mg PO Q4H PRN fever or pain 09/28/23 Unknown Rx #60 caps hydrocodone 5 mg-acetaminophen 325 1 tab PO Q4H PRN pain #30 tabs 09/28/23 Unknown Rx mg tablet ibuprofen 800 mg tablet 800 mg PO TID PRN pain #60 tabs 09/28/23 Unknown Rx Allergies Allergy/AdvReac Type Severity Reaction Status Date / Time Sulfa (Sulfonamide Allergy Mild Unknown Verified 09/18/23 09:56 Antibiotics) Alpha-Gal Allergy ADR-Gastrointestinal Verified 09/18/23 09:56 (Rzduhnxku-Cgjqm-0,3-Gala Upset PFSH STRUCTURAL STEEL WORKER HELPER 2 PFSH: Medical History Allergic reaction to igjaghpsl-bqyli-9,3-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 Carpal tunnel syndrome on right right forearm pain History of labyrinthitis Hypothyroidism No pertinent past medical history neghx: htn,dm,dvt/pe PCP: Nancy Casey Tinnitus of both ears TMJ arthralgia Surgical History Hx of section Hx of cholecystectomy Family History Mother Diabetes type 1 -- dx at age 13 Stroke Grandfather Hypertension maternal Denies family history of Colon cancer Ovarian cancer Heart disease Hyperlipidemia Breast cancer Uterine cancer Thyroid disease Social History Smoking and tobacco/nicotine status: former use of tobacco/nicotine Alcohol intake: never History History History 2 5 Term 4 0 Miscarriages/Ectopic 1 Living Children 4 Vitals/I&O/Wt Last Vital Signs Temp 98.3 F 10/06/23 14:56 Pulse 86 10/06/23 14:56 Resp 17 10/06/23 14:56 BP 138/100 10/06/23 14:56 Pulse Ox 95 10/06/23 14:56 O2 Del Method Room Air 10/06/23 14:56 10/06/23 10/06/23 10/06/23 06:59 14:59 22:59 Intake Total 50 / 50 100 / 100 Balance 50 / 50 100 / 100 Weight last 48 hrs Weight 130.635 kg Weight 130.635 kg Weight 130.635 kg Physical Exam 2 Const: COMMON NORMALS: no acute distress, average body habitus and patient oriented x3 GENERAL APPEARANCE: cooperative and well kempt HENMT: COMMON NORMALS: normocephalic and atraumatic HEAD & SCALP: n ormocephalic and atraumatic Neck/C-Spine: COMMON NORMALS: full ROM Chest: COMMONS NORMALS: normal inspection of the chest Resp: COMMON NORMALS: normal respiratory effort Cardio: COMMON NORMALS: regular rate and regular rhythm RATE: regular rate RHYTHM: regular rhythm GI: INSPECTION: Yes normal to inspection and Yes incision (No signs of infection) Inspection of incision: healing well and other (Moderate ecchymosis) PALPATION: Yes Soft to palpation, Yes Tenderness to palpation present (GI) (Pfannenstiel incision mildly tender), No Guarding due to palpation present (GI) and No Rigid due to palpation Neuro: COMMON NORMALS: patient oriented x3 Psych: APPEARANCE: Yes well kempt Data 10/05/23 22:27 10/05/23 22:27 Micro: Microbiology 10/05/23 22:27 Blood Culture - Preliminary Blood SPECIMEN COLLECTED 10/05/23 22:27 Blood Culture - Preliminary Blood SPECIMEN COLLECTED Results Labs OB ([facility]): 2 Blood Type O Positive 09/26/23 Antibody Screen Negative 09/26/23 Hct 33.5 % (36-47) L 10/05/23 Hgb 11.30 g/dL (11.27-16.99) 10/05/23 Rho(D) Type Rh positive 09/26/23 Plt Count 128 10^3/cmm (157-399) L 10/05/23 HCG, Qual Negative (Negative) 01/14/23 Pap Smear Interpret See note 03/06/23 A&P Assessment and plan (1) Seroma: Mrs. Mclain 48-year-old female status post abdominal hysterectomy and bilateral salpingo-oophorectomy 1 week ago. Came to the ER referring abdominal pain and that she had had fever. Seroma was identified by ultrasound. Incision looks normal with no signs of infection. White count within normal limits. Blood cultures taken. Patient afebrile and hemodynamically stable. Plan Observation. Await for blood cultures results. Attestations 2 Medical Necessity Statement*: In my professional opinion per admitting diagnosis Coding Level of Care Code Acute Code for [facility] Fwd Diagnoses Seroma
[2023-10-06] MEDS: acetaminophen 325 mg Tablet 650 MG PO (18:33)
[2023-10-07] VITALS (10 sets, daily range): BP systolic 96–125; BP diastolic 50–83; PULSE 70–98; RESP 15–20; TEMP 36.9–37.9; O2SAT 94–96; BMI 52.7
[2023-10-07] MEDS: oxyCODONE-APAP 5-325 mg Tablet 1 TAB PO ×4 (00:20→21:19)
[2023-10-07] MEDS: cefTRIAXone 1,000 MG in sodium chloride 0.9% (plus) 50 ML 100 MG IV ×2 (02:15→14:47)
[2023-10-07] MEDS: piperacillin-tazobactam 4.5 GM in sodium chloride 0.9% (plus) 50 ML IV ×3 (03:09→18:07)
[2023-10-07] MEDS: acetaminophen 325 mg Tablet 650 MG PO (04:48)
[2023-10-07 05:44] LABS: Hematocrit 28.7 % (36-47); Mean Corpuscular HGB Conc 33.4 g/dL (30-55); Mean Corpuscular Volume 95.7 fl (85-98); Mean Platelet Volume 9.3 fL (7.4-10.4); Platelet Count 105 10^3/cmm (157-399); Red Cell Distribution Width 14.6 % (12.1-15.1); White Blood Count 6.74 10^3/uL (3.29-11.43)
[2023-10-07] MEDS: docusate sodium 100 mg Capsule PO ×2 (08:10→18:07)
[2023-10-07] MEDS: ibuprofen 800 mg tablet PO (08:11)
--- NOTE | 2023-10-07 13:58 | P.PN_ITS ---
Subjective 2 Subjective: Mrs. Mclain 48-year-old female status post post total abdominal hysterectomy postoperative day 11. Came to the ER referring abdominal pain and elevated temperatures. Vitals/I&O/Wt Last Vital Signs Temp 98.2 F 10/08/23 11:00 Pulse 76 10/08/23 11:00 Resp 16 10/08/23 13:34 BP 115/74 10/08/23 11:00 Pulse Ox 94 10/08/23 05:25 O2 Del Method Room Air 10/08/23 11:00 10/07/23 10/08/23 10/08/23 22:59 06:59 14:59 Intake Total 100 / 200 Balance 100 / 200 Weight last 48 hrs Weight 130.635 kg Physical Exam 2 Narrative: GA: Alert and oriented ?3. HEENT: WNL. Heart: Regular rate and rhythm. Lungs: Clear to auscultation bilaterally. Abdomen: Bowel sounds present,minimal tenderness, incision clean and dry, no redness, pain or edema. mild eccymosis HUMAN SERVICES PROFESSIONAL: No bleeding. Extremities: No edema, no cyanosis, no calves pain. Data 10/08/23 11:44 10/08/23 11:44 A&P Assessment and plan (1) Seroma: Mrs. Mclain 48-year-old female status post abdominal hysterectomy and bilateral salpingo-oophorectomy over 1 week ago. Came to the ER referring abdominal pain and that she had had fever. Seroma was identified by ultrasound. Incision looks normal with no signs of infection. White count within normal limits. Blood cultures taken. Patient was febrile last night. She is hemodynamically stable. She was counseled regarding observation until she is afebrile for 48 hours.. Plan Empiric antibiotic treatment. Observation. CBC Await for blood cultures results final result Attestations 2 Medical Necessity Statement*: In my professional opinion poor admitting diagnosis. Coding Level of Care Code Acute Code for [facility] Diagnoses Seroma
[2023-10-07] MEDS: lactated ringers 1,000 ML 125 ML IV (23:11)
[2023-10-08] MEDS: ibuprofen 800 mg tablet PO ×3 (01:40→15:43)
[2023-10-08] MEDS: cefTRIAXone 1,000 MG in sodium chloride 0.9% (plus) 50 ML 100 MG IV ×2 (03:07→14:52)
[2023-10-08] MEDS: piperacillin-tazobactam 4.5 GM in sodium chloride 0.9% (plus) 50 ML IV (05:18)
[2023-10-08 05:25] VITALS: BP 121/82; PULSE 84; TEMP 36.8; O2SAT 94
[2023-10-08] MEDS: acetaminophen 325 mg Tablet 650 MG PO (06:33)
[2023-10-08] MEDS: lactobacillus 1 Tablet 4 TAB PO ×2 (09:26→20:13)
[2023-10-08] MEDS: piperacillin-tazobactam 3.375 GM in sodium chloride 0.9% (plus) 50 ML IV ×2 (10:16→18:07)
--- NOTE | 2023-10-08 10:55 | P.PN_ITS ---
Subjective 2 Subjective: Mrs. Mclain 48-year-old female status post post total abdominal hysterectomy postoperative day 12. Came to the ER referring abdominal pain and elevated temperatures. Vitals/I&O/Wt Last Vital Signs Temp 98.3 F 10/08/23 05:25 Pulse 84 10/08/23 05:25 Resp 20 H 10/07/23 21:19 BP 121/82 10/08/23 05:25 Pulse Ox 94 10/08/23 05:25 O2 Del Method Room Air 10/08/23 05:25 10/07/23 10/08/23 10/08/23 22:59 06:59 14:59 Intake Total 100 / 200 Balance 100 / 200 Weight last 48 hrs Weight 130.635 kg Physical Exam 2 Narrative: GA: Alert and oriented ?3. HEENT: WNL. Heart: Regular rate and rhythm. Lungs: Clear to auscultation bilaterally. Abdomen: Bowel sounds present,minimal tenderness, incision clean and dry, no redness, pain or edema. 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 Extremities: No edema, no cyanosis, no calves pain. Data 10/10/23 04:16 10/08/23 11:44 A&P Assessment and plan (1) Seroma: Mrs. Mclain 48-year-old female status post abdominal hysterectomy and bilateral salpingo-oophorectomy 1 week ago. Came to the ER referring abdominal pain and that she had had fever. Seroma was identified by ultrasound. Incision looks normal with no signs of infection. White count within normal limits. Blood cultures taken. Patient was febrile last night. She is hemodynamically stable. Plan Empiric antibiotic treatment. Observation. CBC Await for blood cultures results final result Attestations 2 Medical Necessity Statement*: In my professional opinion poor admitting diagnosis Coding Level of Care Code Acute Code for [facility] Fwd Diagnoses Seroma
[2023-10-08 11:00] VITALS: BP 115/74; PULSE 76; RESP 16; TEMP 36.8
[2023-10-08 11:51] LABS: Basophils % 0.3 %; Eosinophils # 0.1 10^3/uL (0.0-0.8); Hematocrit 33.5 % (36-47); Lymphocytes # 1.3 10^3/uL (0.8-4.8); Lymphocytes % 20.8 %; Mean Corpuscular HGB Conc 32.2 g/dL (30-55); Mean Corpuscular Hemoglobin 31.2 pg (27-33); Mean Corpuscular Volume 96.8 fl (85-98); Mean Platelet Volume 9.1 fL (7.4-10.4); Monocytes # 0.4 10^3/uL (0.2-0.9); Monocytes % 5.6 %; Neutrophils % 72.1 %; Nucleated Red Blood Cells % 0 %; Platelet Count 146 10^3/cmm (157-399); Red Blood Count 3.46 10^6/uL (3.85-5.65); Red Cell Distribution Width 14.1 % (12.1-15.1); White Blood Count 6.24 10^3/uL (3.29-11.43)
[2023-10-08 12:20] LABS: Anion Gap 12.6 (5-19); Blood Urea Nitrogen 6 mg/dL (6-20); Calcium 9.3 mg/dL (8.5-10.5); Carbon Dioxide 25 mmol/L (22-29); Chloride 102 mmol/L (98-107); Glomerular Filtration Rate 106.3 mL/min (90-130); Glucose 183 mg/dL (65-115); Osmolality Calculated 284 mOsm/kg (285-295); Potassium 3.6 mmol/L (3.5-5.1); Sodium 136 mmol/L (136-145)
[2023-10-08 13:34] VITALS: RESP 16
[2023-10-08] MEDS: oxyCODONE-APAP 5-325 mg Tablet 1 TAB PO ×2 (13:34→19:40)
[2023-10-08 15:49] VITALS: BP 132/88; PULSE 74; RESP 16; TEMP 36.7
[2023-10-08] MEDS: docusate sodium 100 mg Capsule PO (18:07)
[2023-10-08 19:40] VITALS: RESP 16
[2023-10-08 22:00] VITALS: BP 122/81; PULSE 77; RESP 16; TEMP 36.7; O2SAT 96
[2023-10-09] MEDS: lactated ringers 1,000 ML 125 ML IV (00:05)
[2023-10-09] MEDS: cefTRIAXone 1,000 MG in sodium chloride 0.9% (plus) 50 ML 100 MG IV ×2 (02:04→14:51)
[2023-10-09 02:16] VITALS: RESP 16
[2023-10-09] MEDS: oxyCODONE-APAP 5-325 mg Tablet 1 TAB PO ×2 (02:16→21:57)
[2023-10-09] MEDS: piperacillin-tazobactam 3.375 GM in sodium chloride 0.9% (plus) 50 ML IV ×3 (02:42→18:06)
[2023-10-09 04:21] VITALS: BP 138/87; PULSE 84; RESP 18; TEMP 37.3; O2SAT 96
[2023-10-09 06:00] VITALS: BMI 52.7
[2023-10-09] MEDS: ondansetron 2 mg/ML SDV 2 mL 4 MG IVP (08:27)
[2023-10-09] MEDS: ibuprofen 800 mg tablet PO ×2 (08:27→15:52)
[2023-10-09] MEDS: lactobacillus 1 Tablet 4 TAB PO ×3 (08:28→21:51)
[2023-10-09] MEDS: loperamide 2 mg Capsule PO ×3 (09:07→21:58)
[2023-10-09 10:07] VITALS: BP 128/91; PULSE 76; RESP 18; TEMP 36.9; O2SAT 94
[2023-10-09] MEDS: acetaminophen 325 mg Tablet 650 MG PO (12:58)
[2023-10-09 15:57] VITALS: BP 121/52; PULSE 84; RESP 16; TEMP 36.7; O2SAT 95
[2023-10-09 21:57] VITALS: RESP 16; O2SAT 98
[2023-10-09 22:00] VITALS: BP 128/84; PULSE 80; RESP 16; TEMP 36.8; O2SAT 97
[2023-10-10] MEDS: cefTRIAXone 1,000 MG in sodium chloride 0.9% (plus) 50 ML 100 MG IV (02:13)
[2023-10-10] MEDS: piperacillin-tazobactam 3.375 GM in sodium chloride 0.9% (plus) 50 ML IV (02:55)
[2023-10-10] MEDS: ondansetron 2 mg/ML SDV 2 mL 4 MG IVP (03:07)
[2023-10-10] MEDS: ibuprofen 800 mg tablet PO ×2 (03:12→12:50)
[2023-10-10 04:23] VITALS: BP 131/87; PULSE 81; RESP 18; TEMP 36.6; O2SAT 98
[2023-10-10 04:23] LABS: Basophils % 0.5 %; Eosinophils # 0.1 10^3/uL (0.0-0.8); Hematocrit 29.4 % (36-47); Lymphocytes # 1.3 10^3/uL (0.8-4.8); Lymphocytes % 32.6 %; Mean Corpuscular HGB Conc 32.7 g/dL (30-55); Mean Corpuscular Hemoglobin 31.1 pg (27-33); Mean Corpuscular Volume 95.1 fl (85-98); Monocytes # 0.3 10^3/uL (0.2-0.9); Monocytes % 7.2 %; Neutrophils # 2.31 10^3/uL (1.8-7.7); Neutrophils % 57.5 %; Nucleated Red Blood Cells % 0 %; Platelet Count 143 10^3/cmm (157-399); Red Blood Count 3.09 10^6/uL (3.85-5.65); Red Cell Distribution Width 13.8 % (12.1-15.1); White Blood Count 4.02 10^3/uL (3.29-11.43)
[2023-10-10 04:52] LABS: Estmated Average Glucose 131; Hemoglobin A1C 6.2 % (4.0-6.0)
[2023-10-10] MEDS: acetaminophen 325 mg Tablet 650 MG PO (05:06)
--- NOTE | 2023-10-10 07:16 | PC.NURSE ---
Patient refused synthroid, stated she brought her own and took it today at 0600.
--- NOTE | 2023-10-10 10:37 | P.DS_ITS ---
Discharge Providers [employer] Date of Admission: 10/08/23 10:55 Date of Discharge: 10/10/23 Attending Provider at Admission: Andrea Horta MD Attending Provider at Discharge: Andrea Horta MD Primary Care Provider: Annie Casey Diagnoses at Discharge Discharge Diagnosis (1) Seroma: Status: Acute Reason for Visit Reason for Visit: fever post hysterectomy Hospital Course Hospital Course Mrs. Mclain 48-year-old female is status post abdominal hysterectomy a week and a half ago, came to the emergency room complaining of abdominal pain and referring that she had had fever. Upon evaluation and the seroma was noted at the incision site. She was admitted for empirically antibiotic therapy and evaluation for postop fever. IV antibiotics were started 24 hours after admission she spiked fever. She was continued on IV antibiotics until she was afebrile for 48 hours. Blood cultures, checks x-ray and UA were within normal limits. Patient was counseled regarding she is to continue on pelvic rest for 6 weeks (no sex, no tampons, no vaginal douches). Return to the emergency room if any fever, increased bleeding or pain. Physical Exam Narrative: GA: Alert and oriented ?3. HEENT: WNL. Heart: Regular rate and rhythm. Lungs: Clear to auscultation bilaterally. Abdomen: Bowel sounds present, nontender, minimal tenderness, incision clean and dry, no redness, pain or edema. 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 Extremities: No edema, no cyanosis, no calves pain. History History History 5 Term 4 0 Miscarriages/Ectopic 1 Living Children 4 Discharge Data Studies Completed and Pending Completed Studies During Hospitalization Category Date Time Status CT abdomen pelvis w con* [id number] Stat Cat Scan 10/05/23 22:17 Completed XR chest 1V portable [id number] Stat Exams 10/05/23 22:31 Completed Pending at discharge Category Date Time Status Blood Culture Stat Lab 10/05/23 22:27 Results Radiology Impressions Abdomen/Pelvis CT 10/05/23 22:17 IMPRESSION: Fluid collection within the inferior abdominal wall deep subcutaneous tissues. Thickening and enhancement of the subjacent superficial abdominal wall fascia and low-attenuation within the anterior aspect of the bilateral rectus musculature, suggesting myositis. Chest X-Ray 10/05/23 22:31 IMPRESSION: No acute findings. Laboratory Results WBC 4.02 10^3/uL (3.29-11.43) 10/10/23 04:16 RBC 3.09 10^6/uL (3.85-5.65) L 10/10/23 04:16 Hgb 9.60 g/dL (11.27-16.99) L 10/10/23 04:16 Hct 29.4 % (36-47) L 10/10/23 04:16 MCV 95.1 fl (85-98) 10/10/23 04:16 MCH 31.1 pg (27-33) 10/10/23 04:16 MCHC 32.7 g/dL (30-55) 10/10/23 04:16 RDW 13.8 % (12.1-15.1) 10/10/23 04:16 Plt Count 143 10^3/cmm (157-399) L 10/10/23 04:16 MPV 9.0 fL (7.4-10.4) 10/10/23 04:16 Neut % (Auto) 57.5 % 10/10/23 04:16 Lymph % (Auto) 32.6 % 10/10/23 04:16 [place] % (Auto) 7.2 % 10/10/23 04:16 Eos % (Auto) 2.0 % 10/10/23 04:16 Baso % (Auto) 0.5 % 10/10/23 04:16 Neut # (Auto) 2.31 10^3/uL (1.8-7.7) 10/10/23 04:16 Lymph # (Auto) 1.3 10^3/uL (0.8-4.8) 10/10/23 04:16 [place] # (Auto) 0.3 10^3/uL (0.2-0.9) 10/10/23 04:16 Eos # (Auto) 0.1 10^3/uL (0.0-0.8) 10/10/23 04:16 Baso # (Auto) 0.0 10^3/uL (0.0-0.1) 10/10/23 04:16 Nucleated RBC % (auto) 0 % 10/10/23 04:16 Nucleated RBCs # 0.0 /100WBC 10/10/23 04:16 Sodium 136 mmol/L (136-145) 10/08/23 11:44 Potassium 3.6 mmol/L (3.5-5.1) 10/08/23 11:44 Chloride 102 mmol/L (98-107) 10/08/23 11:44 Carbon Dioxide 25 mmol/L (22-29) 10/08/23 11:44 Anion Gap 12.6 (5-19) 10/08/23 11:44 BUN 6 mg/dL (6-20) 10/08/23 11:44 Creatinine 0.6 mg/dL (0.5-0.9) 10/08/23 11:44 GFR Calculation 106.3 mL/min (90-130) 10/08/23 11:44 Glucose 183 mg/dL (65-115) H 10/08/23 11:44 POC Glucose 221 mg/dL (70-110) H 10/06/23 08:57 Estimat Average Glucose 131 10/10/23 04:16 Hemoglobin A1c 6.2 % (4.0-6.0) H 10/10/23 04:16 Calculated Osmolality 284 mOsm/kg (285-295) L 10/08/23 11:44 Lactic Acid 3.0 mmol/L (0.5-2.2) H 10/05/23 22:27 Lactic Acid (Sepsis) 2.3 mmol/L (0.5-2.2) H 10/06/23 00:25 Calcium 9.3 mg/dL (8.5-10.5) 10/08/23 11:44 Total Bilirubin 1.2 mg/dL (0.15-1.2) 10/05/23 22:27 AST 11 U/L (0-32) 10/05/23 22:27 ALT 22 U/L (0-33) 10/05/23 22:27 Alkaline Phosphatase 92 U/L (35-105) 10/05/23 22:27 Total Protein 6.6 g/dL (6.6-8.7) 10/05/23 22:27 Albumin 3.8 g/dL (3.5-5.2) 10/05/23 22:27 Globulin 2.8 g/dL (1.3-4.6) 10/05/23 22:27 Urine Color Yellow (Yellow) 10/05/23 22:40 Urine Appearance Clear (CLEAR) 10/05/23 22:40 Urine pH 5 (5-7) 10/05/23 22:40 Ur Specific [place] 1.010 (1.005-1.030) 10/05/23 22:40 Urine Protein Neg (Negative) 10/05/23 22:40 Urine Glucose (UA) Norm (Normal) 10/05/23 22:40 Urine Ketones Negative (Negative) 10/05/23 22:40 Urine Blood Neg (Negative) 10/05/23 22:40 Urine Nitrate Negative (Negative) 10/05/23 22:40 Urine Bilirubin Neg (Negative) 10/05/23 22:40 Urine Urobilinogen Norm mg/dL (Negative) 10/05/23 22:40 Ur Leukocyte Esterase Negative (Negative) 10/05/23 22:40 Vitals Last Vital Signs Temp 97.9 F 10/10/23 04:23 Pulse 81 10/10/23 04:23 Resp 18 10/10/23 04:23 BP 131/87 10/10/23 04:23 Pulse Ox 98 10/10/23 04:23 O2 Del Method Room Air 10/10/23 04:23 Results Labs OB ([facility]): Blood Type O Positive 09/26/23 Antibody Screen Negative 09/26/23 Hct 29.4 % (36-47) L 10/10/23 Hgb 9.60 g/dL (11.27-16.99) L 10/10/23 Rho(D) Type Rh positive 09/26/23 Plt Count 143 10^3/cmm (157-399) L 10/10/23 Hemoglobin A1c 6.2 % (4.0-6.0) H 10/10/23 HCG, Qual Negative (Negative) 01/14/23 Pap Smear Interpret See note 03/06/23 Discharge Plan Discharge Patient Disposition: Home Condition: Stable Prescriptions: New cephalexin 500 mg tablet 500 mg PO BID 7 Days Qty: 14 0RF Continued albuterol sulfate 90 mcg/actuation HFA aerosol inhaler 2 puff inhalation Q6H PRN (Reason: Respiratory Distress) epinephrine [EpiPen 2-Thony] 0.3 mg/0.3 mL auto-injector 0.3 mg IM Q4H PRN (Reason: Anaphylaxis) Rx Instructions: pt hasn't used levothyroxine 25 mcg capsule 25 mcg PO DAILY fluticasone propionate [Allergy Relief (fluticasone)] 50 mcg/actuation spray,suspension 1 spray intranasal DAILY PRN (Reason: allergies) Rx Instructions: administer into each nostril albuterol sulfate 2.5 mg /3 mL (0.083 %) solution for nebulization 2.5 mg inhalation Q4H PRN (Reason: shortness of breath or wheezing) Qty: 75 0RF diclofenac sodium [Voltaren Arthritis Pain] 1 % gel 4 g topical QID Qty: 100 1RF Rx Instructions: apply to single knee, ankle, foot; for foot includes sole/toes/top of foot cetirizine [Zyrtec] 10 mg tablet 10 mg PO DAILY PRN (Reason: allergies) meclizine 25 mg tablet 25 mg PO QID PRN (Reason: dizziness) Qty: 20 0RF ibuprofen 800 mg tablet 800 mg PO TID PRN (Reason: pain) Qty: 60 0RF acetaminophen 325 mg capsule 325 mg PO Q4H PRN (Reason: fever or pain) Qty: 60 0RF aspirin 81 mg Tablet,Chewable 81 mg PO DAILY ibuprofen 800 mg tablet 800 mg PO TID PRN (Reason: pain) Qty: 60 0RF hydrocodone-acetaminophen 5-325 mg tablet 1 tab PO Q4H PRN (Reason: pain) Qty: 30 0RF acetaminophen 325 mg capsule 325 mg PO Q4H PRN (Reason: fever or pain) Qty: 60 0RF Discharge Orders: Discharge Order (Routine); Ordered 10/10/23 Ordered By: Joey Forrester Referrals: Annie Casey [Primary Care Provider] - Joey Forrester MD [Physician] - 7-10 days Discharge Diet: Usual diet Discharge Activity: Limit activity as instructed Patient Instructions: Opioid Safety, Seroma (GEN) Activity Restrictions/Additional Instructions: 1. Please call [facility] clinic on next working day to make your post-operative appointment in 2 weeks or as scheduled.. 2. Please stay home until you come back to the clinic on first post- hospatilization check up. 3. Please follow instructions on your medications CAREFULLY. 4. If you have abdominal incision, do not cover it unless dressing is necessary because of drainage. OK to shower, but avoid bath. Leave steri-strips until they fall off. If they are still on one week after surgery, you may remove them. 5. If you had vaginal surgery or vaginal repair, Dr. Forrester may instruct you to take SITZ bath. 6. Yellow, blood tinged odorous vaginal discharge is usually normal after hysterectomy or vaginal surgeries. 7. No SEXUAL INTERCOURSE, tampons, or douches until you are completely released from the post-operative care. 8. Avoid constipation by eating right and maybe using some Metamucil or Milk of Magnesia. 9. All prescription refills are given during the working hours. Please do no wait till it runs out. Call the clinic at [phone] before your medication runs out. The clinic will get in touch with your doctor to prescribe medications if necessary. 10. Please remain within 40 mile radius from our hospital because emergencies do happen now and then during the post-operative period. 11. If you have stairs at home, take one step at a time slowly and minimize the number of trips. It helps to stay in one floor for the next few days. No lifting except what you can lift by one hand until you are released from the post-operative care. 12. Driving is discouraged until you are well healed. It may be 3-4 weeks before you feel strong enough to drive. You should be able to turn and look through the rear window without pain and you should be able to push the brake pedal very hard without pain before you drive. No fast rules, but SAFETY should be your primary concern. DO NOT drive if you are on sedating medications such as narcotics. 13. Call the clinic (during working hours) to make urgent appointment or go to the Emergency room, if any of the following occurs: i. Vaginal bleeding becomes heavy, more than a period. ii. Incision becomes red and sore, or drains pus. iii. Your TEMPERATURE is over 100.4F or you have chill. iv. IV site becomes red and swollen (a little ``knot?? is usually OK) v. Persistent nausea and vomiting vi. Persistent constipation or diarrhea vii. Rash or allergic reaction to medications. Discharge Attestations [employer] Time Spent in Discharge Care*: greater than 30 min Coding Level of Care Code Acute Code for Chg Fwd Diagnoses Seroma
[2023-10-10 12:55] VITALS: BP 137/82; PULSE 81; RESP 18; TEMP 36.7; O2SAT 98
== END 2023-10-10 12:55 | disposition home or self-care (01) ==
LOC: ER 10-06 00:17 → OBGYN 10-10 10:39
PROVIDERS: Obstetrics & Gynecology; Admitting Provider Obstetrics & Gynecology; Emergency Provider Nurse Practitioner Family; PCP Nurse Practitioner Family; Visit Provider Obstetrics & Gynecology
DX: L76.34 Postprocedural seroma of skin and subcutaneous tissue following other procedure (principal); R50.9 Fever, unspecified; Z90.710 Acquired absence of both cervix and uterus; E03.9 Hypothyroidism, unspecified; Z87.891 Personal history of nicotine dependence; Z79.82 Long term (current) use of aspirin
CPT/HCPCS: 36415; 36416; 71045; 74177; 80048; 80053; 81003; 82962; 83036; 83605; 85025; 85027; 87040; 96365; 96366; 96375; 99285; G0378; J0696; J2405; J2543; J7030; J7120; Q9967